=== PATIENT | female | born 1980 | race African-American/Black ===

== ENCOUNTER 2016-03-22 14:49 | Emergency (ER) | payer OTHER ==
[~2016-03-22] VITALS: Ht 149.9 cm; Wt 107.0 kg
[~2016-03-22 14:49] MED LIST: ALBUTEROL SULF8.5 GM INH; NEXAFED30 MG ORAL; PROMETHAZINE-C118 M1 ORAL
[2016-03-22] MEDS ORDERED: ADVAIR 100-501 EACH INH (15:20)
--- NOTE | 2016-03-22 15:59 | Emergency Room Report ---
History of Present Illness General Chief Complaint: Skin Rash/Abscess Source: Patient Present Illness HPI 35-year-old female presents to emergency department complaining of itchy rash similar to hives all over the upper extremity, torso and thighs x3 days. Patient states she just finished course of Tamiflu approximately 3 days ago when symptoms began. Patient denies swelling of the lips or tongue patient denies difficulty breathing. Patient states she has a history of asthma. Patient states she has taken 25mg Benadryl with no relief. Denies CP, Palpitations, LOC, AMS, dizziness, Changes in Vision, Sensation, paresthesias, or a sudden severe headache. Allergies: Coded Allergies: BANANA (Verified Adverse Reaction, Severe, 10/13/15) PENICILLINS (Verified Adverse Reaction, Severe, 10/13/15) Patient History Past Medical History: see triage record Past Surgical History: none Pertinent Family History: none Last Menstrual Period: 02/11/2017 Now: No Reviewed Nursing Documentation: PMH: Agreed, PSxH: Agreed Nursing Documentation-PMH Past Medical History: No History, Except For Hx Hypertension: Yes Hx Asthma: Yes Review of Systems All Other Systems: negative except mentioned in HPI Physical Exam Vital Signs Date Time Temp Pulse Resp B/P Pulse Ox O2 Delivery O2 Flow Rate FiO2 03/22/16 15:15 98.8 103 14 129/91 97 Room Air Sp02 EP Interpretation: reviewed, normal General Appearance: no apparent distress, alert, GCS 15, non-toxic Head: normocephalic, atraumatic Eyes: bilateral eye PERRL, bilateral eye normal inspection ENT: hearing grossly normal, normal pharynx, no angioedema, normal voice, TMs + canals normal, uvula midline, moist mucus membranes, other - no oral mucosal involvement, no swelling of the lips or tongue. Neck: full range of motion, supple/symm/no masses Respiratory: chest non-tender, lungs clear, normal breath sounds, no rhonchi, no respiratory distress, no retraction, no accessory muscle use, speaking full sentences, wheezing - scant expiratory wheezes heard in the upper airway, consistent with asthma. Cardiovascular #1: regular rate, rhythm, no edema Gastrointestinal: non tender, soft, no guarding, no rebound, other - urticarial type confluent lesions noted on the abdomen and upper chest. Rectal: deferred Musculoskeletal: back normal, gait/station normal, normal range of motion, non- tender, no calf tenderness Neurologic: alert, oriented x3, responsive, motor strength/tone normal, sensory intact, speech normal Psychiatric: judgement/insight normal, memory normal, mood/affect normal, no suicidal/homicidal ideation Skin: normal color, warm/dry, well hydrated, rash - blanching swollen, urticarial type lesions, with some confluence noted on the abdomen, back , anterior chest and UE's no evidence of infestation, blistering or targetoid lesions. no oral mucosal involvement. Lymphatic: no adenopathy Medical Decision Making PA Attestation Dr. Porter is my supervising Physician whom patient management has been discussed with. Diagnostic Impression: Primary Impression: Rash and other nonspecific skin eruption Additional Impression: History of asthma ER Course Pt. presents to the ED c/o rash on Torso, UE's and thighs x 5days s/p finishing Tamiflu. Ddx considered but are not limited to cellulitis, scabies, shingles, varicella, dermatitis, urticaria, eczema, tinea, viral exanthem, TEN/SJS Vital signs: are WNL, pt. is afebrile H&PE are most consistent with possible drug eruption no evidence to suggest TEN or SJS at this time no oral mucosal involvement, no involvement of the palms. ORDERS: none required at this time, the diagnosis is clinical ED INTERVENTIONS: -50mg Benadryl IM will d/c pt. with hydrocortisone and oral steroids. - pt. also requests refill of inhaler as she is almost out. DISCHARGE: At this time pt. is stable for d/c to home. Will provide printed patient care instructions, and any necessary prescriptions. Care plan and follow up instructions have been discussed with the patient prior to discharge. Last Vital Signs Date Time Temp Pulse Resp B/P Pulse Ox O2 Delivery O2 Flow Rate FiO2 03/22/16 15:15 98.8 103 14 129/91 97 Room Air Disposition: HOME, SELF-CARE Condition: Stable Scripts Hydrocortisone 2% Cream (ANTI-ITCH 2% CREAM) Y Cr 1 APPLIC TP TID, #56 GM 1 Refill Prov: Melva Lucas 03/22/16 Albuterol Sulfate* (ALBUTEROL SULFATE MDI*) 8.5 Gm Hfa.aer.ad 2 PUFF INH Q3H, #1 INH 0 Refills Prov: Melva Lucas 03/22/16 Prednisone* (PREDNISONE*) 20 Mg Tablet 40 MG ORAL DAILY for 5 Days, TAB Prov: Melva Lucas 03/22/16 Hydroxyzine Hcl (HYDROXYZINE HCL) 25 Mg Tablet 25 MG PO TID, #30 TAB Prov: Melva Lucas 03/22/16 Patient Instructions: Rash Additional Instructions: Take medications as directed. Follow up with PCP in 3-5 days Return sooner to ED if new symptoms occur, or current symptoms become worse. Do not drink alcohol, drive, or operate heavy machinery while taking Hydroxyzine as this may cause drowsiness. Melva Lucas Mar 22, 2016 15:59
[2016-03-22] MEDS ORDERED: DiphenhydrAMINE 50mg/ml Inj IM ONE (16:00)
[2016-03-22] MEDS ORDERED: PredniSONE 20mg tab ORAL ONE (16:00)
[2016-03-22] MEDS ORDERED: ALBUTEROL SULF8.5 GM INH (16:10)
[2016-03-22] MEDS ORDERED: ANTI-ITCH56 GM TP (16:10)
[2016-03-22] MEDS ORDERED: PREDNISONE20 MG ORAL (16:10)
[2016-03-22] MEDS ORDERED: HYDROXYZINE HCL25 M1 PO (16:10)
[2016-03-22 16:39] VITALS: BP 132/94
[2016-03-22 16:40] VITALS: BP 129/91
== END 2016-03-22 16:40 | disposition home or self-care (01) ==
LOC: EMR 16:29
DX: R21 Rash and other nonspecific skin eruption (principal); J45.909 Unspecified asthma, uncomplicated; I10 Essential (primary) hypertension; Z88.0 Allergy status to penicillin; Z91.018 Allergy to other foods
CPT/HCPCS: 96372; 99284; J1200

== ENCOUNTER 2016-04-11 11:07 | Emergency (ER) | payer OTHER ==
[~2016-04-11] VITALS: Ht 149.9 cm; Wt 108.0 kg
[~2016-04-11 11:07] MED LIST changes: +ADVAIR 100-501 EACH INH; +ANTI-ITCH56 GM TP; +HYDROXYZINE HCL25 M1 PO; +PREDNISONE20 MG ORAL
[2016-04-11] MEDS ORDERED: Ipratropium 0.02% Inh Soln 2.5ml UD ONE (11:45)
[2016-04-11] MEDS ORDERED: Albuterol ud Inhalation ONE (11:45)
[2016-04-11] MEDS ORDERED: Albuterol ud Inhalation HHN SCH (11:45)
[2016-04-11] MEDS ORDERED: Ipratropium 0.02% Inh Soln 2.5ml UD HHN SCH (11:45)
[2016-04-11] MEDS ORDERED: PredniSONE 20mg tab ORAL ONE (11:45)
[2016-04-11] MEDS ORDERED: ALBUTEROL2.5 MG/3 M HHN (11:47)
[2016-04-11] MEDS ORDERED: ALBUTEROL SULF8.5 GM INH (11:47)
[2016-04-11] MEDS ORDERED: PREDNISONE20 MG ORAL (11:47)
--- NOTE | 2016-04-11 11:50 | Emergency Room Report ---
History of Present Illness General Chief Complaint: Asthma Source: Patient Present Illness HPI 35 YOF with known asthma, non-smoker with cough and chest tightness since last night. Ran out of home nebulizers. Takes advair daily. Never intubated or on bipap. Denies fever/chills, SOB, chest pain, abd pain, other complaints. Allergies: Coded Allergies: BANANA (Verified Adverse Reaction, Severe, 10/13/15) PENICILLINS (Verified Adverse Reaction, Severe, 10/13/15) Patient History Past Medical History: asthma Past Surgical History: none Pertinent Family History: none Social History: Denies: alcohol use, drug use, smoking Last Menstrual Period: 03/29/16 Now: No Immunizations: UTD Reviewed Nursing Documentation: PMH: Agreed, PSxH: Agreed Nursing Documentation-PMH Hx Hypertension: Yes Hx Asthma: Yes Review of Systems All Other Systems: negative except mentioned in HPI Physical Exam Vital Signs Date Time Temp Pulse Resp B/P Pulse Ox O2 Delivery O2 Flow Rate FiO2 04/11/16 11:38 98.4 87 14 146/107 97 Room Air Sp02 EP Interpretation: reviewed, normal General Appearance: normal inspection, well appearing, no apparent distress, alert, GCS 15, non-toxic Head: normocephalic, atraumatic Eyes: bilateral eye EOMI, bilateral eye PERRL ENT: normal ENT inspection, hearing grossly normal, normal voice Neck: normal inspection, full range of motion, supple, no bony tend Respiratory: normal inspection, no respiratory distress, no retraction, no accessory muscle use, no wheezing, wheezing Cardiovascular #1: regular rate, rhythm, no edema Gastrointestinal: normal inspection, normal bowel sounds, non tender, soft, no guarding, no hernia Genitourinary: no CVA tenderness Musculoskeletal: normal inspection, back normal, normal range of motion, Markus' s Sign negative Neurologic: normal inspection, alert, oriented x3, responsive, cotton program technician III-XII nml as tested, speech normal Psychiatric: normal inspection, judgement/insight normal, mood/affect normal Skin: normal inspection, normal color, no rash Medical Decision Making Diagnostic Impression: Primary Impression: Asthma attack ER Course 35 YO F with mild asthma exac possibly from URI. VSS. Afebrile. Not hypoxic, tachpypnic or in severe distress Mild exp wheez on presentation Low suspicion for PNA given well appearance, afebrile, no rhonchi on exam Improved with duonebs, steroids Feels much better s/p tx Rx nebs refilled Rx Predisone for 3 days Fup with PMD Last Vital Signs Date Time Temp Pulse Resp B/P Pulse Ox O2 Delivery O2 Flow Rate FiO2 04/11/16 11:38 98.4 87 14 146/107 97 Room Air Status: improved Disposition: HOME, SELF-CARE Condition: Improved Scripts Prednisone* (PREDNISONE*) 20 Mg Tablet 20 MG ORAL BID for 3 Days, #6 TAB Prov: JACKY CRISTOBAL M.D. 04/11/16 Albuterol Sulfate* (ALBUTEROL SULFATE HHN*) 2.5 Mg/3 Ml Vial.neb 2.5 MG HHN Q4H Y for Shortness of Breath, #25 VIAL Prov: JACKY CRISTOBAL M.D. 04/11/16 Albuterol Sulfate* (ALBUTEROL SULFATE MDI*) 8.5 Gm Hfa.aer.ad 2 PUFF INH Q6H, #1 EA 0 Refills Prov: JACKY CRISTOBAL M.D. 04/11/16 Patient Instructions: Asthma, Adult Additional Instructions: - Take prednisone twice daily for next 3 days starting tomorrow/Sunday - Follow up with your doctor in 2-3 days JACKY CRISTOBAL M.D. Apr 11, 2016 11:50
[2016-04-11 11:56] VITALS: BP 132/78
[2016-04-11 12:19] VITALS: BP 132/78
== END 2016-04-11 12:20 | disposition home or self-care (01) ==
LOC: EMR 11:53
DX: J45.901 Unspecified asthma with (acute) exacerbation (principal); I10 Essential (primary) hypertension; Z88.0 Allergy status to penicillin; Z91.018 Allergy to other foods
CPT/HCPCS: 94640; 94664; 99284

== ENCOUNTER 2016-10-12 16:34 | Emergency (ER) | payer MEDICAID, OTHER ==
[~2016-10-12] VITALS: Ht 180.3 cm; Wt 102.5 kg
[~2016-10-12 16:34] MED LIST changes: +ALBUTEROL2.5 MG/3 M HHN
[2016-10-12] MEDS ORDERED: PredniSONE 20mg tab ORAL ONE (17:00)
[2016-10-12] MEDS ORDERED: PREDNISONE20 MG ORAL (17:09)
[2016-10-12] MEDS ORDERED: KENALOG 0.025%15 GM APPLIC (17:09)
[2016-10-12 17:13] VITALS: BP 122/78
--- NOTE | 2016-10-12 19:47 | Emergency Room Report ---
History of Present Illness General Chief Complaint: Skin Rash/Abscess Present Illness HPI The patient is a 36-year-old female presenting for rash. She states that she was taking an antibiotic for upper respiratory infection but does not remember the name. She finished a prescription for days prior which is when she began to develop the rash. She states that she does have an allergy to penicillin. She denies any pain but admits to itching and bumps on the skin of her left neck and mid chest. She has tried Benadryl at home which did not help. She denies any other symptoms including nausea, vomiting, fever, chills, cough, shortness of breath, chest pain Allergies: Coded Allergies: BANANA (Verified Adverse Reaction, Severe, 10/13/15) PENICILLINS (Verified Adverse Reaction, Severe, 10/13/15) Patient History Past Medical History: see triage record Pertinent Family History: none Reviewed Nursing Documentation: PMH: Agreed, PSxH: Agreed Nursing Documentation-PMH Hx Hypertension: Yes Hx Asthma: Yes Review of Systems All Other Systems: negative except mentioned in HPI Physical Exam Vital Signs Date Time Temp Pulse Resp B/P Pulse Ox O2 Delivery O2 Flow Rate FiO2 10/12/16 16:38 97.9 89 20 131/82 100 Room Air Sp02 EP Interpretation: reviewed, normal General Appearance: no apparent distress, alert, GCS 15, non-toxic Head: normocephalic, atraumatic Eyes: bilateral eye PERRL, bilateral eye normal inspection ENT: hearing grossly normal, normal pharynx, no angioedema, normal voice Neck: full range of motion, supple/symm/no masses Respiratory: chest non-tender, lungs clear, normal breath sounds, speaking full sentences Cardiovascular #1: regular rate, rhythm, no edema Musculoskeletal: back normal, gait/station normal, normal range of motion, non- tender Neurologic: alert, oriented x3, responsive, motor strength/tone normal, sensory intact, speech normal Psychiatric: judgement/insight normal, memory normal, mood/affect normal, no suicidal/homicidal ideation Skin: rash - papular rash to the L neck. Non tender. Lymphatic: no adenopathy Medical Decision Making PA Attestation Dr. Porter is my supervising physician. Patient management was discussed with my supervising physician Diagnostic Impression: Primary Impression: Dermatitis ER Course The patient is a 36-year-old female presenting for possible allergic reaction Ddx considered include but not limited to insect bite, contact dermatitis, eczema, cellulitis, anaphylaxis, among others PE: afebrile. NAD HEENT: No angioedema. Oropharynx patent. Skin: warm and dry. papular rash to L neck. Non tender. No scaling. The patient is given oral steroids and topical steroids. She will follow up with primary doctor. ER precautions given Last Vital Signs Date Time Temp Pulse Resp B/P Pulse Ox O2 Delivery O2 Flow Rate FiO2 10/12/16 17:13 78 17 122/78 97 Room Air 10/12/16 17:13 98.1 Status: improved Disposition: HOME, SELF-CARE Condition: Improved Scripts Prednisone* (PREDNISONE*) 20 Mg Tablet 40 MG ORAL DAILY, #10 TAB Prov: DELFIN CHÁVEZ 10/12/16 Triamcinolone Acet (Triamcinolone Acetonide) 15 Gm Cream..g. 15 GM APPLIC TID, #15 GM Prov: DELFIN CHÁVEZ 10/12/16 Referrals: NOT CHOSEN [facility]/,REFERRING (PCP) Patient Instructions: Rash Additional Instructions: I discussed my findings with the patient. All questions and concerns have been answered. Treatment and medication compliance have been addressed. I advised the patient that they need to follow up with PMD in 3-5 days. Return to ED if symptoms worsen, new symptoms arise, or if needed for any reason. Patient verbalized understanding of discharge instructions. DELFIN CHÁVEZ Oct 12, 2016 19:47
== END 2016-10-12 17:15 | disposition home or self-care (01) ==
LOC: EMR 17:03
DX: L30.9 Dermatitis, unspecified (principal); Z88.0 Allergy status to penicillin; I10 Essential (primary) hypertension; Z91.018 Allergy to other foods
CPT/HCPCS: 99283

== ENCOUNTER 2016-10-31 19:48 | Emergency (ER) | payer MEDICAID ==
[~2016-10-31] VITALS: Ht 152.4 cm; Wt 104.3 kg
[~2016-10-31 19:48] MED LIST changes: +KENALOG 0.025%15 GM APPLIC
[2016-10-31 20:02] VITALS: BP 134/84
[2016-10-31] MEDS ORDERED: ZITHROMAX250 MG ORAL (20:34)
[2016-10-31] MEDS ORDERED: PROMETHAZI6.25 MG/1 ORAL (20:34)
[2016-10-31] MEDS ORDERED: PREDNISONE20 MG ORAL (20:34)
[2016-10-31 20:37] VITALS: BP 134/84
--- NOTE | 2016-10-31 22:48 | Emergency Room Report ---
History of Present Illness General Chief Complaint: Upper Respiratory Illness Present Illness HPI The patient is a 36-year-old female with a history of asthma presenting for feeling of wheezing, sore throat, and cough which began 3 days prior. She denies any known sick contacts or recent travel. She has been using albuterol and Advair at home which usually helps but has not been helping. She denies other symptoms including fever, chills, nausea, vomiting Allergies: Coded Allergies: BANANA (Verified Adverse Reaction, Severe, 10/13/15) PENICILLINS (Verified Adverse Reaction, Severe, 10/13/15) Patient History Past Medical History: see triage record, asthma Pertinent Family History: none Reviewed Nursing Documentation: PMH: Agreed, PSxH: Agreed Nursing Documentation-PMH Hx Hypertension: Yes Hx Asthma: Yes Review of Systems All Other Systems: negative except mentioned in HPI Physical Exam Vital Signs Date Time Temp Pulse Resp B/P (MAP) Pulse Ox O2 Delivery O2 Flow Rate FiO2 10/31/16 19:54 98.1 99 20 134/84 98 Room Air Sp02 EP Interpretation: reviewed, normal General Appearance: no apparent distress, alert, GCS 15, non-toxic Head: normocephalic, atraumatic Eyes: bilateral eye normal inspection, bilateral eye PERRL ENT: hearing grossly normal, no angioedema, normal voice, uvula midline, tonsillar swelling, pharyngeal erythema, tonsillar exudate Neck: full range of motion, supple/symm/no masses Respiratory: chest non-tender, speaking full sentences, wheezing Cardiovascular #1: regular rate, rhythm, no edema Musculoskeletal: back normal, gait/station normal, normal range of motion, non- tender Neurologic: alert, oriented x3, responsive, motor strength/tone normal, sensory intact, speech normal Psychiatric: judgement/insight normal, memory normal, mood/affect normal, no suicidal/homicidal ideation Skin: normal color, no rash, warm/dry, well hydrated Medical Decision Making PA Attestation Dr. Marin is my supervising physician. Patient management was discussed with my supervising physician Diagnostic Impression: Primary Impression: Pharyngitis, acute Qualified Codes: J02.9 - Acute pharyngitis, unspecified Additional Impression: Asthma Qualified Codes: J45.901 - Unspecified asthma with (acute) exacerbation ER Course The patient is a 36-year-old female presenting for asthma and URI symptoms Differential diagnosis include but not limited to pharyngitis, sinusitis, AOM, bronchitis, PNA Physical exam: Vitals within normal limits. Afebrile. No apparent distress HEENT exam: There is bilateral tonsillar edema, erythema, and exudate. Uvula midline. Moist mucous membranes. There is bilateral cervical lymphadenopathy. Lungs have diffuse wheezing. No respiratory distress Skin is warm and dry. No rash The patient will be discharged home with a prescription for azithromycin, cough medication, prednisone and is given ER precautions. Patient will followup with primary care Last Vital Signs Date Time Temp Pulse Resp B/P (MAP) Pulse Ox O2 Delivery O2 Flow Rate FiO2 10/31/16 20:37 98.1 99 20 134/84 98 Room Air Status: improved Disposition: HOME, SELF-CARE Condition: Improved Scripts Promethazine Hcl (PROMETHAZINE HCL*) 6.25 Mg/5 Ml Syrup 5 ML ORAL Q6H, #120 ML 0 Refills Prov: DELFIN CHÁVEZ.A. 10/31/16 Prednisone* (PREDNISONE*) 20 Mg Tablet 40 MG ORAL DAILY, #10 TAB Prov: DELFIN CHÁVEZ P.A. 10/31/16 Azithromycin* (ZITHROMAX*) 250 Mg Tablet 250 MG ORAL DAILY, #6 TAB 0 Refills Take two tables once daily for 1 day, then one tablet once daily for 4 days. Prov: DELFIN CHÁVEZ P.A. 10/31/16 Referrals: NOT CHOSEN [facility],REFERRING (PCP) Patient Instructions: Upper Respiratory Infection, Adult Additional Instructions: I discussed my findings with the patient. All questions and concerns have been answered. Treatment and medication compliance have been addressed. I advised the patient that they need to follow up with PMD in 3-5 days. Return to ED if pain remains or worsens, cough worsens or remains, you notice blood in your sputum, you notice wheezing, you experience a fever, or if needed for any reason. Patient verbalized understanding of discharge instructions. DELFIN CHÁVEZ Oct 31, 2016 22:47
== END 2016-10-31 20:38 | disposition home or self-care (01) ==
LOC: EMR 20:26
DX: J45.901 Unspecified asthma with (acute) exacerbation (principal); J02.9 Acute pharyngitis, unspecified; I10 Essential (primary) hypertension; Z91.018 Allergy to other foods; Z88.0 Allergy status to penicillin
CPT/HCPCS: 99284

== ENCOUNTER 2017-03-20 09:45 | Emergency (ER) | payer MEDICAID ==
[~2017-03-20] VITALS: Ht 149.9 cm; Wt 110.2 kg
[~2017-03-20 09:45] MED LIST changes: +PROMETHAZI6.25 MG/1 ORAL; +ZITHROMAX250 MG ORAL
[2017-03-20] MEDS ORDERED: Albuterol ud Inhalation HHN ONE ×2 (10:30→11:30)
[2017-03-20] MEDS ORDERED: Ipratropium 0.02% Inh Soln 2.5ml UD HHN ONE (10:30)
--- NOTE | 2017-03-20 10:30 | Emergency Room Report ---
History of Present Illness General Chief Complaint: Dyspnea/Respdistress Source: Patient Present Illness HPI Patient presents with complaints of shortness of breath She has history of asthma and feels that the weather has made her flare up Denies any vomiting Denies any diarrhea Denies any chest pain denies any pleurisy Denies any recent travel Patient took a breathing treatment at home with minimal relief Last time she was on steroids was about 2 months ago Allergies: Coded Allergies: OSELTAMIVIR (Verified Allergy, Unknown, 03/20/17) BANANA (Verified Adverse Reaction, Severe, 10/13/15) PENICILLINS (Verified Adverse Reaction, Severe, 10/13/15) Uncoded Allergies: APPLE JUICE (Allergy, Unknown, 03/20/17) Patient History Past Medical History: see triage record Past Surgical History: none Pertinent Family History: none Last Menstrual Period: 02/18/17 Now: No Reviewed Nursing Documentation: PMH: Agreed, PSxH: Agreed Nursing Documentation-PMH Hx Hypertension: Yes Hx Asthma: Yes Review of Systems All Other Systems: negative except mentioned in HPI Physical Exam Vital Signs Date Time Temp Pulse Resp B/P (MAP) Pulse Ox O2 Delivery O2 Flow Rate FiO2 03/20/17 09:48 97.9 80 22 146/90 96 Room Air Sp02 EP Interpretation: reviewed, normal General Appearance: well appearing, no apparent distress Head: normocephalic, atraumatic Eyes: bilateral eye PERRL, bilateral eye EOMI ENT: hearing grossly normal, normal pharynx, TMs + canals normal, uvula midline Neck: full range of motion, supple, no meningismus, no bony tend Respiratory: no rhonchi, no respiratory distress, no retraction, no accessory muscle use, wheezing - Wheezing diffusely both upper and lower lobe Cardiovascular #1: normal peripheral pulses, regular rate, rhythm, no edema, no gallop, no JVD, no murmur Gastrointestinal: normal bowel sounds, non tender, soft, no mass, no organomegaly, non-distended, no guarding, no hernia, no pulsatile mass, no rebound Musculoskeletal: normal inspection Neurologic: oriented x3, responsive, purifying plant operator III-XII nml as tested, motor strength/ tone normal, sensory intact Psychiatric: mood/affect normal Skin: normal color, no rash, warm/dry, palpation normal Lymphatic: normal inspection, no adenopathy Medical Decision Making Diagnostic Impression: Primary Impression: Asthma Additional Impression: Asthma attack ER Course Patient is a fairly complex patient with multiple differential to consideration including but not limited to cardiac cardiopulmonary and vascular emergencies Patient's lung sounds and history of presenting in line with acute asthma exacerbation Patient has a significantly better with breathing treatments will be placed on steroids and follow up closely Last Vital Signs Date Time Temp Pulse Resp B/P (MAP) Pulse Ox O2 Delivery O2 Flow Rate FiO2 03/20/17 10:07 78 18 Room Air 03/20/17 09:48 97.9 146/90 96 Status: improved Disposition: HOME, SELF-CARE Condition: Improved Scripts Albuterol Sulfate (ALBUTEROL SULFATE) 5 Mg/1 Ml Solution 5 MG IH EVERY 6 HOURS, #30 AMP Prov: DELFINO TSE D.O. 03/20/17 Ipratropium [place] (ATROVENT HFA) 12.9 Gm Hfa.aer.ad 12.9 GM IH DAILY, #1 AMP Prov: DELFINO TSE D.O. 03/20/17 Prednisone* (PREDNISONE*) 20 Mg Tablet 20 MG ORAL BID, #10 TAB Prov: DELFINO TSE D.O. 03/20/17 Referrals: [facility],REFERR[facility] (PCP) Additional Instructions: Patient is provided with the discharge instructions notified to follow up with primary doctor in the next 2-3 days otherwise return to the er with any worsening symptoms. Please note that this report is being documented using [employer] technology. This can lead to erroneous entry secondary to incorrect interpretation by the dictating instrument. DELFINO TSE D.O. Mar 20, 2017 10:30
[2017-03-20] MEDS ORDERED: PREDNISONE20 MG ORAL (11:11)
[2017-03-20] MEDS ORDERED: ATROVENT HFA12.9 GM IH (11:11)
[2017-03-20] MEDS ORDERED: ALBUTEROL S5 MG/1 ML IH (11:11)
[2017-03-20 11:46] VITALS: BP 148/99
== END 2017-03-20 11:48 | disposition home or self-care (01) ==
LOC: EMR 10:21
DX: J45.901 Unspecified asthma with (acute) exacerbation (principal); I10 Essential (primary) hypertension; Z88.8 Allergy status to other drugs, medicaments and biological substances; Z88.0 Allergy status to penicillin; Z91.018 Allergy to other foods
CPT/HCPCS: 94640; 94664; 99284; J7512

== ENCOUNTER 2017-03-31 12:28 | Emergency (ER) | payer MEDICAID ==
[~2017-03-31] VITALS: Ht 149.9 cm; Wt 111.1 kg
[~2017-03-31 12:28] MED LIST changes: +ALBUTEROL S5 MG/1 ML IH; +ATROVENT HFA12.9 GM IH
[2017-03-31] MEDS ORDERED: Albuterol ud Inhalation HHN ONE (12:45)
[2017-03-31] MEDS ORDERED: Albuterol ud Inhalation HHN SCH (12:45)
[2017-03-31] MEDS ORDERED: Ipratropium 0.02% Inh Soln 2.5ml UD HHN ONE (12:45)
--- NOTE | 2017-03-31 12:49 | Emergency Room Report ---
History of Present Illness General Chief Complaint: Asthma Source: Patient Present Illness HPI Pt. presents to the emergency department complaining of asthma exacerbation x3 days. Patient reports that the cough with subjective fevers and chills times one week. Patient states she has been using albuterol inhaler daily as well as nebulized albuterol at nighttime. She reports only mild improvement of her symptoms. She reports 8/10 severity chest tightness and pain with coughing. Denies swelling of the lower extremities she denies history of cardiac problems. Patient is up to date with vaccinations except for yearly flu. Denies recent travel or ill contacts . Denies CP, Palpitations, LOC, AMS, dizziness, Changes in Vision, Sensation, paresthesias, or a sudden severe headache. Allergies: Coded Allergies: OSELTAMIVIR (Verified Allergy, Unknown, 03/20/17) BANANA (Verified Adverse Reaction, Severe, 10/13/15) PENICILLINS (Verified Adverse Reaction, Severe, 10/13/15) Uncoded Allergies: APPLE JUICE (Allergy, Unknown, 03/20/17) Patient History Past Medical History: see triage record Past Surgical History: none Pertinent Family History: none Last Menstrual Period: 02/18/17. Now: No Immunizations: UTD Reviewed Nursing Documentation: PMH: Agreed, PSxH: Agreed Nursing Documentation-PMH Hx Hypertension: Yes Hx Asthma: Yes Review of Systems All Other Systems: negative except mentioned in HPI Physical Exam Vital Signs Date Time Temp Pulse Resp B/P (MAP) Pulse Ox O2 Delivery O2 Flow Rate FiO2 03/31/17 12:32 98.2 100 24 150/81 91 Room Air Sp02 EP Interpretation: reviewed, normal General Appearance: no apparent distress, alert, GCS 15, non-toxic Head: normocephalic, atraumatic Eyes: bilateral eye normal inspection, bilateral eye PERRL ENT: hearing grossly normal, normal voice Neck: full range of motion Respiratory: chest non-tender, speaking full sentences, wheezing Cardiovascular #1: regular rate, rhythm, no edema, normal capillary refill Rectal: deferred Musculoskeletal: back normal, gait/station normal, normal range of motion, non- tender Neurologic: alert, oriented x3, responsive, motor strength/tone normal, sensory intact, speech normal, grossly normal Psychiatric: judgement/insight normal Skin: normal color, no rash, warm/dry, well hydrated Lymphatic: no adenopathy Medical Decision Making PA Attestation Dr. Moulton is my supervising Physician whom patient management has been discussed with. Diagnostic Impression: Primary Impression: Asthma exacerbation Qualified Codes: J45.901 - Unspecified asthma with (acute) exacerbation Additional Impression: Bronchitis ER Course Pt. presents to the emergency department complaining of asthma exacerbation x3 days. Patient reports that the cough with subjective fevers and chills times one week. Patient states she has been using albuterol inhaler daily as well as nebulized albuterol at nighttime. She reports only mild improvement of her symptoms. She reports 8/10 severity chest tightness and pain with coughing. Denies swelling of the lower extremities she denies history of cardiac problems. Patient is up to date with vaccinations except for yearly flu. Denies recent travel or ill contacts . Denies CP, Palpitations, LOC, AMS, dizziness, Changes in Vision, Sensation, paresthesias, or a sudden severe headache. Ddx considered but are not limited to asthma exacerbation, CHF, URI, pneumonia, PE, strep pharyngitis, meningitis. Vital signs: Pt. is afebrile, VS are WNL H&PE are most consistent with URI, asthma exacerbation ORDERS: -CXR : unremarkable ED INTERVENTIONS: Albuterol + Atrovent nebulized treatment. -Prednisone PO DISCHARGE: At this time pt. is stable for d/c to home. Will provide printed patient care instructions, and any necessary prescriptions. Care plan and follow up instructions have been discussed with the patient prior to discharge. Chest X-Ray Diagnostic Results Chest X-Ray Diagnostic Results : Chest X-Ray Ordered: Yes # of Views/Limited/Complete: 1 View Indication: Shortness of Breath EP Interpretation: Yes MAICOL Xray: Interpretation reviewed, by supervising MD, and agrees with findings. Interpretation: no consolidation, no effusion, no pneumothorax, no acute cardiopulmonary disease Impression: No acute disease Electronically Signed by: Melva Lucas PA-C Last Vital Signs Date Time Temp Pulse Resp B/P (MAP) Pulse Ox O2 Delivery O2 Flow Rate FiO2 03/31/17 12:35 100 24 Room Air 03/31/17 12:32 98.2 150/81 91 Disposition: HOME, SELF-CARE Condition: Stable Scripts Guaifenesin (Guaifenesin) 1,200 Mg Tab.er.12h 1200 MG PO BID, #20 TAB Prov: Melva Lucas 03/31/17 Prednisone* (PREDNISONE*) 20 Mg Tablet 40 MG ORAL DAILY for 5 Days, #10 TAB Prov: Melva Lucas 03/31/17 Albuterol Sulfate* (ALBUTEROL SULFATE HHN*) 2.5 Mg/3 Ml Vial.neb 3 ML INH Q4H Y for Shortness of Breath, #30 EA Prov: Melva Lucas 03/31/17 Codeine/Promethazine Hcl* (PROMETHAZINE-CODEINE SYRUP*) 118 Ml Syrup 5 ML ORAL Q6H Y for For Cough, #120 ML 0 Refills Prov: Melva Lucas 03/31/17 Patient Instructions: Asthma, Adult Additional Instructions: Take medications as directed. Follow up with a Primary Care Provider in 3-5 days, even if your symptoms have resolved. --Please review list of primary care clinics, if you do not already have a primary care provider Return sooner to ED if new symptoms occur, or current symptoms become worse. Do not drink alcohol, drive, or operate heavy machinery while taking Cough Syrup as this may cause drowsiness. - Please note that this Emergency Department Report was dictated using [employer] level lab technician technology software, occasionally this can lead to erroneous entry secondary to interpretation by the dictation equipment. Melva Lucas Mar 31, 2017 12:49
[2017-03-31] MEDS ORDERED: PROMETHAZINE-C118 M1 ORAL (13:24)
[2017-03-31] MEDS ORDERED: GUAIFENESIN1200 MG PO (13:24)
[2017-03-31] MEDS ORDERED: ALBUTEROL2.5 MG/3 M INH (13:24)
[2017-03-31] MEDS ORDERED: PREDNISONE20 MG ORAL (13:24)
[2017-03-31 13:44] VITALS: BP 145/76
--- NOTE | 2017-04-01 08:52 | Diagnostic Imaging Report ---
Indication: Chest pain Technique: One view of the chest Comparison: none Findings: Heart is borderline enlarged. The lungs and pleural spaces are clear Impression: Borderline cardiomegaly. No acute process
== END 2017-03-31 13:44 | disposition home or self-care (01) ==
LOC: EMR 12:45
DX: J45.901 Unspecified asthma with (acute) exacerbation (principal); I10 Essential (primary) hypertension; Z88.0 Allergy status to penicillin; Z88.8 Allergy status to other drugs, medicaments and biological substances; Z91.018 Allergy to other foods
CPT/HCPCS: 71045; 94640; 94664; 99284; J7512

== ENCOUNTER 2017-04-12 13:04 | Emergency (ER) | payer MEDICAID ==
[~2017-04-12] VITALS: Ht 149.9 cm; Wt 109.8 kg
[~2017-04-12 13:04] MED LIST changes: +ALBUTEROL2.5 MG/3 M INH; +GUAIFENESIN1200 MG PO
[2017-04-12] MEDS ORDERED: Albuterol ud Inhalation HHN SCH (13:30)
[2017-04-12] MEDS ORDERED: Albuterol ud Inhalation HHN ONE (14:00)
--- NOTE | 2017-04-12 14:35 | Diagnostic Imaging Report ---
Indication: Chest pain Comparison: 318 A single view chest radiograph was obtained. Findings: Cardiomediastinal appearance is within normal limits for age. Pulmonary vascularity is appropriate. The diaphragmatic contour is smooth and costophrenic angles are sharp. No pleural effusions are identified. The bones are unremarkable. Impression: No acute findings
[2017-04-12] MEDS ORDERED: Ipratropium 0.02% Inh Soln 2.5ml UD HHN ONE (15:00)
[2017-04-12 15:19] VITALS: BP 147/85
--- NOTE | 2017-04-12 15:30 | Emergency Room Report ---
History of Present Illness General Chief Complaint: Asthma Source: Patient Present Illness HPI 36-year-old female presents to the emergency department complaining of exacerbation of her asthma with wheezing, dry cough and minimal relief from her treatments at home. Patient states that for the past week she has been having increased exacerbation of her symptoms. Patient states that she uses albuterol nebulizer twice daily. Pt has been out of [facility] x 2 months. last PFT testing done 2 years ago. Pt. denies fevers or chills. pt. denies recent travel. Pt. reports 4/10 in severity pressure in the chest and describes "tightness" and coughing with attempts to take a full breath. Denies sore throat, ear pain, high fevers, lethargy, neck pain/stiffness, irritability, photophobia dehydration, N/V/D. Denies Cp, Palpitations, LOC, AMS, seizures, paresthesias, or changes in Hearing or vision, no Sudden severe RIBERA. Allergies: Coded Allergies: OSELTAMIVIR (Verified Allergy, Unknown, 03/20/17) BANANA (Verified Adverse Reaction, Severe, 10/13/15) PENICILLINS (Verified Adverse Reaction, Severe, 10/13/15) Uncoded Allergies: APPLE JUICE (Allergy, Unknown, 03/20/17) Patient History Past Medical History: see triage record, asthma Past Surgical History: none Pertinent Family History: none Last Menstrual Period: 02/18/2018 Now: No Reviewed Nursing Documentation: PMH: Agreed, PSxH: Agreed Nursing Documentation-PMH Past Medical History: No History, Except For Hx Hypertension: Yes Hx Asthma: Yes Review of Systems All Other Systems: negative except mentioned in HPI Physical Exam Vital Signs Date Time Temp Pulse Resp B/P (MAP) Pulse Ox O2 Delivery O2 Flow Rate FiO2 04/12/17 13:11 98.1 105 24 140/84 95 Room Air 98.1 04/12/17 13:26 95 Sp02 EP Interpretation: reviewed, normal General Appearance: no apparent distress, alert, GCS 15, non-toxic Head: normocephalic, atraumatic Eyes: bilateral eye normal inspection, bilateral eye PERRL ENT: hearing grossly normal, normal voice Neck: full range of motion Respiratory: chest non-tender, lungs clear, normal breath sounds, speaking full sentences, wheezing - moderate expiratory wheezes bilaterally, no ronchi Cardiovascular #1: regular rate, rhythm Musculoskeletal: back normal, gait/station normal, normal range of motion, non- tender Neurologic: alert, oriented x3, responsive, motor strength/tone normal, sensory intact, speech normal, grossly normal Psychiatric: judgement/insight normal Skin: normal color, no rash, warm/dry, well hydrated Lymphatic: no adenopathy Medical Decision Making PA Attestation Dr. Porter is my supervising Physician whom patient management has been discussed with. Diagnostic Impression: Primary Impression: Bronchitis with asthma, acute ER Course 36-year-old female presents to the emergency department complaining of exacerbation of her asthma with wheezing, dry cough and minimal relief from her treatments at home. Patient states that for the past week she has been having increased exacerbation of her symptoms. Patient states that she uses albuterol nebulizer twice daily. Pt has been out of [facility] x 2 months. last PFT testing done 2 years ago. Pt. denies fevers or chills. pt. denies recent travel. Pt. reports 4/10 in severity pressure in the chest and describes "tightness" and coughing with attempts to take a full breath. Denies sore throat, ear pain, high fevers, lethargy, neck pain/stiffness, irritability, photophobia dehydration, N/V/D. Denies Cp, Palpitations, LOC, AMS, seizures, paresthesias, or changes in Hearing or vision, no Sudden severe RIBERA. Ddx considered but are not limited to asthma exacerbation, CHF, URI, pneumonia, PE, strep pharyngitis, meningitis. Vital signs: Pt. is afebrile, VS are WNL H&PE are most consistent with URI, asthma exacerbation ORDERS: none required at this time, the diagnosis is clinical ED INTERVENTIONS: -Albuterol nebulized treatment x 3 - Atrovent x 1 -Prednisone PO - re-examination post nebulized treatment lung sounds have improved moderately some scant expiratory wheezes still present. d/w pt. conservative treatment, and to follow up with a primary care provider. pt given a list of primary care clinics for follow up. d/w pt. to return to the ED with worsening or new symptoms. DISCHARGE: At this time pt. is stable for d/c to home. Will provide printed patient care instructions, and any necessary prescriptions. Care plan and follow up instructions have been discussed with the patient prior to discharge. Chest X-Ray Diagnostic Results Chest X-Ray Diagnostic Results : Chest X-Ray Ordered: Yes # of Views/Limited/Complete: 1 View Indication: Shortness of Breath EP Interpretation: Yes PA Xray: Interpretation reviewed, by supervising MD, and agrees with findings. Interpretation: no consolidation, no effusion, no pneumothorax Impression: No acute disease Electronically Signed by: Melva Lucas PA-C Last Vital Signs Date Time Temp Pulse Resp B/P (MAP) Pulse Ox O2 Delivery O2 Flow Rate FiO2 04/12/17 15:22 90 20 93 Room Air 21 04/12/17 15:19 98.0 147/85 98.0 Disposition: HOME, SELF-CARE Condition: Stable Scripts Guaifenesin (Guaifenesin) 1,200 Mg Tab.er.12h 1200 MG PO BID, #20 TAB Prov: Melva Lucas P.A. 04/12/17 Albuterol Sulfate* (ALBUTEROL SULFATE HHN*) 2.5 Mg/3 Ml Vial.neb 3 ML INH Q4H Y for Shortness of Breath, #30 EA Prov: Melva Lucas.A. 04/12/17 Fluticasone/Salmeterol (Advair 250-50 Diskus) 1 Each Blst.w.dev 1 PUFF INH EVERY 12 HOURS, #1 EA 3 Refills Prov: Melva Lucas.A. 04/12/17 Prednisone* (PREDNISONE*) 20 Mg Tablet 40 MG ORAL DAILY for 5 Days, #10 TAB Prov: Melva Lucas.A. 04/12/17 Codeine/Promethazine Hcl* (PROMETHAZINE-CODEINE SYRUP*) 118 Ml Syrup 5 ML ORAL Q6H Y for For Cough, #120 ML 0 Refills Prov: Melva Lucas.A. 04/12/17 Referrals: [facility]ERR[facility] (PCP) Patient Instructions: Asthma, Adult Additional Instructions: Take medications as directed. Follow up with a Primary Care Provider in 3-5 days, even if your symptoms have resolved. --Please review list of primary care clinics, if you do not already have a primary care provider Return sooner to ED if new symptoms occur, or current symptoms become worse. Do not drink alcohol, drive, or operate heavy machinery while taking Cough Syrup as this may cause drowsiness. - Please note that this Emergency Department Report was dictated using [email or web address] driver technology software, occasionally this can lead to erroneous entry secondary to interpretation by the dictation equipment. Melva Lucas Apr 12, 2017 15:30
[2017-04-12] MEDS ORDERED: GUAIFENESIN1200 MG PO (15:36)
[2017-04-12] MEDS ORDERED: ADVAIR 250-501 EACH INH (15:36)
[2017-04-12] MEDS ORDERED: PREDNISONE20 MG ORAL (15:36)
[2017-04-12] MEDS ORDERED: ALBUTEROL2.5 MG/3 M INH (15:36)
[2017-04-12] MEDS ORDERED: PROMETHAZINE-C118 M1 ORAL (15:36)
[2017-04-12 15:46] VITALS: BP 143/84
== END 2017-04-12 15:49 | disposition home or self-care (01) ==
LOC: EMR 13:40
DX: J20.9 Acute bronchitis, unspecified (principal); J45.901 Unspecified asthma with (acute) exacerbation; I10 Essential (primary) hypertension; Z88.0 Allergy status to penicillin; Z91.018 Allergy to other foods
CPT/HCPCS: 71045; 94640; 94664; 99284; J7512

== ENCOUNTER 2017-04-22 16:11 | Emergency (ER) | payer MEDICAID ==
[~2017-04-22] VITALS: Ht 149.9 cm; Wt 111.1 kg
[~2017-04-22 16:11] MED LIST changes: +ADVAIR 250-501 EACH INH
[2017-04-22] MEDS ORDERED: Albuterol ud Inhalation HHN ONE (16:30)
[2017-04-22] MEDS ORDERED: Ipratropium 0.02% Inh Soln 2.5ml UD HHN ONE (16:30)
[2017-04-22] MEDS: Ipratropium 0.02% Inh Soln 2.5ml UD HHN SCH ×3 (16:41→16:55)
[2017-04-22] MEDS: Albuterol ud Inhalation HHN SCH ×3 (16:41→16:55)
[2017-04-22] MEDS ORDERED: PREDNISONE20 M1 PO (18:16)
[2017-04-22 18:25] VITALS: BP 130/72
--- NOTE | 2017-04-22 20:14 | Emergency Room Report ---
History of Present Illness General Chief Complaint: Asthma Source: Patient Present Illness HPI The patient is a 36-year-old female with a history of asthma presenting for possible asthma exacerbation. She uses albuterol and Advair at home. She states that symptoms have worsened due to to the cold weather. She is experiencing coughing as well as shortness of breath. She denies any pain. She denies other symptoms including N, V, F, chills, dizziness, blurred vision Allergies: Coded Allergies: OSELTAMIVIR (Verified Allergy, Unknown, 03/20/17) BANANA (Verified Adverse Reaction, Severe, 10/13/15) PENICILLINS (Verified Adverse Reaction, Severe, 10/13/15) Uncoded Allergies: APPLE JUICE (Allergy, Unknown, 03/20/17) Patient History Past Medical History: see triage record Pertinent Family History: none Reviewed Nursing Documentation: PMH: Agreed, PSxH: Agreed Nursing Documentation-PMH Hx Hypertension: Yes Hx Asthma: Yes Review of Systems All Other Systems: negative except mentioned in HPI Physical Exam Vital Signs Date Time Temp Pulse Resp B/P (MAP) Pulse Ox O2 Delivery O2 Flow Rate FiO2 04/22/17 16:18 98.1 104 22 132/80 100 Room Air 98.1 04/22/17 16:38 21 Sp02 EP Interpretation: reviewed, normal General Appearance: no apparent distress, alert, GCS 15, non-toxic Head: normocephalic, atraumatic Eyes: bilateral eye normal inspection, bilateral eye PERRL ENT: hearing grossly normal, normal pharynx, no angioedema, normal voice Neck: full range of motion, supple/symm/no masses Respiratory: no accessory muscle use, speaking full sentences, wheezing Cardiovascular #1: regular rate, rhythm, no edema Musculoskeletal: back normal, gait/station normal, normal range of motion, non- tender Neurologic: alert, oriented x3, responsive, motor strength/tone normal, sensory intact, speech normal Psychiatric: judgement/insight normal, memory normal, mood/affect normal, no suicidal/homicidal ideation Skin: normal color, no rash, warm/dry, well hydrated Medical Decision Making PA Attestation Dr. Nuñez is my supervising physician. Patient management was discussed with my supervising physician Diagnostic Impression: Primary Impression: Asthma exacerbation Qualified Codes: J45.901 - Unspecified asthma with (acute) exacerbation ER Course The patient is a 36-year-old female with a history of asthma presenting for possible asthma exacerbation Differential diagnoses considered but not limited to: Asthma exacerbation, bronchitis, pneumonia, anxiety Physical exam: Vitals within normal limits. No apparent distress HEENT exam is unremarkable Lungs: Decreased breath sounds bilaterally with wheezing. Chest is nontender. No respiratory distress. No accessory muscle use. The patient was given a breathing treatment x3 and is feeling much better. Lungs sounds have improved Patient is discharged home with a prescription for prednisone and will continue using albuterol and advair and will followup with PMD. Pt was told to use humidifier at home. ER precautions are given Last Vital Signs Date Time Temp Pulse Resp B/P (MAP) Pulse Ox O2 Delivery O2 Flow Rate FiO2 04/22/17 18:25 97.9 98 18 130/72 98 Room Air 97.9 04/22/17 16:59 21 Status: improved Disposition: HOME, SELF-CARE Condition: Improved Scripts Prednisone (Prednisone) 20 Mg Tablet 40 MG PO DAILY, #8 TAB Prov: DELFIN CHÁVEZ 04/22/17 Patient Instructions: Asthma, Adult, Asthma Attack Prevention Additional Instructions: I discussed my findings with the patient. All questions and concerns have been answered. Treatment and medication compliance have been addressed. I advised the patient that they need to follow up with PMD in 3-5 days. Return to ED if symptoms worsen, new symptoms arise, or if needed for any reason. Patient verbalized understanding of discharge instructions. DELFIN CHÁVEZ Apr 22, 2017 20:14
== END 2017-04-22 18:25 | disposition home or self-care (01) ==
LOC: EMR 16:30
DX: J45.901 Unspecified asthma with (acute) exacerbation (principal); I10 Essential (primary) hypertension; Z88.0 Allergy status to penicillin; Z91.018 Allergy to other foods
CPT/HCPCS: 94640; 94664; 99283

== ENCOUNTER 2017-05-16 14:47 | Emergency (ER) | payer MEDICAID ==
[~2017-05-16] VITALS: Ht 149.9 cm; Wt 110.7 kg
[~2017-05-16 14:47] MED LIST changes: +PREDNISONE20 M1 PO
--- NOTE | 2017-05-16 15:12 | Emergency Room Report ---
History of Present Illness General Chief Complaint: To Be Triaged Source: Patient Present Illness HPI 36-year-old female presents with feeling like she's having asthma attack denies chest pain, shortness of breath Denies fever chills Endorses recent URI symptoms, chest tightness Has been here multiple times per month last 2 months Review of EMR does not show that she is on long-acting steroid Allergies: Coded Allergies: OSELTAMIVIR (Verified Allergy, Unknown, 03/20/17) BANANA (Verified Adverse Reaction, Severe, 10/13/15) PENICILLINS (Verified Adverse Reaction, Severe, 10/13/15) Uncoded Allergies: APPLE JUICE (Allergy, Unknown, 03/20/17) Patient History Past Medical History: asthma Past Surgical History: none Pertinent Family History: none Social History: Denies: smoking, alcohol use, drug use Now: No Immunizations: UTD Reviewed Nursing Documentation: PMH: Agreed, PSxH: Agreed Nursing Documentation-PMH Hx Hypertension: Yes Hx Asthma: Yes Review of Systems All Other Systems: negative except mentioned in HPI Physical Exam Sp02 EP Interpretation: reviewed, normal General Appearance: normal inspection, well appearing, no apparent distress, alert, GCS 15, non-toxic Head: normocephalic, atraumatic Eyes: bilateral eye PERRL, bilateral eye EOMI ENT: normal ENT inspection, hearing grossly normal, normal pharynx, no angioedema, normal voice, TMs + canals normal, uvula midline, moist mucus membranes Neck: normal inspection, full range of motion, supple, thyroid normal, no meningismus, no bony tend Respiratory: normal inspection, lungs clear, normal breath sounds, no rhonchi, no respiratory distress, no retraction, no accessory muscle use, speaking full sentences, wheezing Cardiovascular #1: regular rate, rhythm, no edema, no JVD, normal capillary refill Gastrointestinal: normal inspection, normal bowel sounds, non tender, soft, no mass, no peritonitis, non-distended, no guarding, no hernia, no pulsatile mass Genitourinary: no CVA tenderness Musculoskeletal: normal inspection, back normal, normal range of motion, no calf tenderness, pelvis stable, Markus's Sign negative Neurologic: normal inspection, alert, oriented x3, responsive, almond roaster III-XII nml as tested, motor strength/tone normal, cerebellar normal, normal gait, speech normal Psychiatric: normal inspection, judgement/insight normal, mood/affect normal, no suicidal/homicidal ideation, no delusions Skin: normal inspection, normal color, no rash Lymphatic: normal inspection, no adenopathy Medical Decision Making Diagnostic Impression: Primary Impression: Asthma attack ER Course 36-year-old female with mild asthma exacerbation Vital signs stable, afebrile No tachycardia, tachypnea or hypoxia imProved with albuterol, prednisone Will start patient on long-acting steroid, Advair, given obvious poor primary care follow-up and multiple visits with exacerbations occurring 2-3 times per month ER course: Patient has remained stable during ED stay. Disposition: Patient is to be discharged to home. Prescriptions given are advair, ventolin, prednisone Patient is instructed to follow up with their primary care doctor within 5 days. Strict return precautions discussed with patient such as fever, chills, worsening/severe pain, nausea, vomiting, which may indicate severe illness. Patient verbalizes understanding and agrees with plan. Please note that this Emergency Department Report was dictated using [employer] index technology software, occasionally this can lead to erroneous entry secondary to interpretation by the dictation equipment Status: improved Disposition: HOME, SELF-CARE Scripts Prednisone* (PREDNISONE*) 20 Mg Tablet 40 MG ORAL DAILY for 5 Days, #10 TAB Prov: JACKY CRISTOBAL M.D. 05/16/17 Albuterol Sulfate (VENTOLIN HFA) 18 Gm Hfa.aer.ad 1 PUFF INH EVERY 6 HOURS, #18 GM 0 Refills Prov: JACKY CRISTOBAL M.D. 05/16/17 Fluticasone/Salmeterol (Advair 100-50 Diskus) 1 Each Blst.w.dev 1 PUFF INH TWICE A DAY for 30 Days, #1 EA 1 Refill Prov: JACKY CRISTOBAL M.D. 05/16/17 JACKY CRISTOBAL M.D. May 16, 2017 15:12
[2017-05-16] MEDS ORDERED: PREDNISONE20 MG ORAL (15:13)
[2017-05-16] MEDS ORDERED: ADVAIR 100-501 EACH INH (15:13)
[2017-05-16] MEDS ORDERED: VENTOLIN HFA18 GM INH (15:13)
[2017-05-16] MEDS ORDERED: Albuterol ud Inhalation HHN ONE (15:15)
[2017-05-16 15:58] VITALS: BP 138/93
[2017-05-16 18:56] VITALS: BP 138/93
== END 2017-05-16 16:20 | disposition home or self-care (01) ==
LOC: EMR 16:00
DX: J45.901 Unspecified asthma with (acute) exacerbation (principal); I10 Essential (primary) hypertension
CPT/HCPCS: 94640; 94664; 99284; J7512

== ENCOUNTER 2017-07-17 01:00 | Emergency (ER) | payer MEDICAID ==
[~2017-07-17] VITALS: Ht 149.9 cm; Wt 109.8 kg
[~2017-07-17 01:00] MED LIST changes: +VENTOLIN HFA18 GM INH
--- NOTE | 2017-07-17 01:48 | Emergency Room Report ---
History of Present Illness General Chief Complaint: Earache Source: Patient Present Illness HPI This is a 36-year-old female with no significant past medical history. She presents with chief complaint of foreign body in her ear. She is clean area with a Q-tip when the tip broke off. She try to get it out with another Q-tip and pushing it further. No pain. No bleeding. No other complaint. Onset about a couple hours ago. Allergies: Coded Allergies: OSELTAMIVIR (Verified Allergy, Unknown, 03/20/17) BANANA (Verified Adverse Reaction, Severe, 10/13/15) PENICILLINS (Verified Adverse Reaction, Severe, 10/13/15) Uncoded Allergies: APPLE JUICE (Allergy, Unknown, 03/20/17) Patient History Past Medical History: see triage record, old chart reviewed Past Surgical History: other Pertinent Family History: none Social History: Denies: smoking Last Menstrual Period: June Now: No Immunizations: other Reviewed Nursing Documentation: PMH: Agreed; PSxH: Agreed Nursing Documentation-PMH Hx Hypertension: Yes Hx Asthma: Yes Review of Systems Eye: Denies: eye pain, blurred vision ENT: Denies: ear pain, nose congestion, throat swelling Respiratory: Denies: cough, shortness of breath Cardiovascular: Denies: chest pain, palpitations Gastrointestinal: Denies: abdominal pain, diarrhea, nausea, vomiting Musculoskeletal: Denies: back pain, joint pain Skin: Denies: rash Neurological: Denies: headache, numbness Endocrine: Denies: increased thirst, increased urine Hematologic/Lymphatic: Denies: easy bruising All Other Systems: negative except mentioned in HPI Physical Exam Vital Signs Date Time Temp Pulse Resp B/P (MAP) Pulse Ox O2 Delivery O2 Flow Rate FiO2 07/17/17 01:11 98.1 82 16 147/90 95 Room Air 98.1 vitals normal Sp02 EP Interpretation: reviewed, normal General Appearance: well appearing, no apparent distress, alert, obese Head: normocephalic, atraumatic Eyes: bilateral eye PERRL, bilateral eye EOMI ENT: hearing grossly normal, normal pharynx, other - right ear canal with foreign body in the form of a Q-tip No perforation. Neck: full range of motion, supple, no meningismus Respiratory: chest non-tender, lungs clear, normal breath sounds Cardiovascular #1: regular rate, rhythm, no murmur Gastrointestinal: normal bowel sounds, non tender, no mass, no organomegaly, no bruit, non-distended Musculoskeletal: back normal, gait/station normal, normal range of motion Psychiatric: mood/affect normal Skin: warm/dry Procedures Additional Procedure Procedure Narrative Procedure: Foreign body removal Indication: Foreign body Description: I irrigated the ear canal with warm water. The Q-tip removed without any problem. On recheck no perforation. No trauma. No complication. Patient tolerated procedure without problem. Medical Decision Making Diagnostic Impression: Primary Impression: Foreign body of ear, right Qualified Codes: T16.1XXA - Foreign body in right ear, initial encounter ER Course this patient presents with foreign body to left ear. No trauma. No perforation. Remove easily. Last Vital Signs Date Time Temp Pulse Resp B/P (MAP) Pulse Ox O2 Delivery O2 Flow Rate FiO2 07/17/17 01:11 98.1 82 16 147/90 95 Room Air 98.1 Status: improved Disposition: HOME, SELF-CARE Condition: Stable Referrals: [facility] (PCP) Additional Instructions: Follow-up with your doctor as needed in 7 days. Return if worse. MARYCHUY MULLINS M.D. July 17, 2017 01:48
[2017-07-17 01:51] VITALS: BP 147/90
== END 2017-07-17 01:54 | disposition home or self-care (01) ==
LOC: EMR 01:27
DX: T16.1XXA Foreign body in right ear, initial encounter (principal); X58.XXXA Exposure to other specified factors, initial encounter; Y92.9 Unspecified place or not applicable; I10 Essential (primary) hypertension; J45.909 Unspecified asthma, uncomplicated; Z88.0 Allergy status to penicillin; Z91.018 Allergy to other foods
CPT/HCPCS: 69200; 99284; Z7502

== ENCOUNTER 2017-11-06 13:37 | Emergency (ER) | payer MEDICAID ==
[~2017-11-06] VITALS: Ht 149.9 cm; Wt 111.1 kg
[2017-11-06 13:53] VITALS: BP 140/96
--- NOTE | 2017-11-06 14:47 | Emergency Room Report ---
History of Present Illness General Chief Complaint: Upper Respiratory Illness Source: Patient Present Illness HPI 37 YO female present to the ED c/o sinus congestion , with non-purulent rhinorrhea. Pt. also reports she began coughing today and hx of bronchitis. pt. denies RIBERA, dizziness or symptoms greater than 10 days. pt. denies fevers or chills. Denies unilateral symptoms. Denies sore throat, ear pain, high fevers, lethargy, neck pain/stiffness, irritability, photophobia dehydration, N/V/D. Denies Cp, Palpitations, LOC, AMS, seizures, paresthesias, or changes in Hearing or vision. Denies hx of smoking, asthma or COPD. Allergies: Coded Allergies: OSELTAMIVIR (Verified Allergy, Unknown, 03/20/17) BANANA (Verified Adverse Reaction, Severe, 10/13/15) PENICILLINS (Verified Adverse Reaction, Severe, 10/13/15) Uncoded Allergies: APPLE JUICE (Allergy, Unknown, 03/20/17) Patient History Past Medical History: see triage record Past Surgical History: none Pertinent Family History: none Last Menstrual Period: 10/15 Now: No Reviewed Nursing Documentation: PMH: Agreed; PSxH: Agreed Nursing Documentation-PMH Hx Hypertension: Yes Hx Asthma: Yes Review of Systems All Other Systems: negative except mentioned in HPI Physical Exam Vital Signs Date Time Temp Pulse Resp B/P (MAP) Pulse Ox O2 Delivery O2 Flow Rate FiO2 11/06/17 13:48 98.0 77 16 140/96 98 Room Air 98.1 Sp02 EP Interpretation: reviewed, normal General Appearance: no apparent distress, alert, GCS 15, non-toxic Head: normocephalic, atraumatic Eyes: bilateral eye normal inspection, bilateral eye PERRL ENT: hearing grossly normal, normal pharynx, normal voice, TMs + canals normal , uvula midline, moist mucus membranes, nasal congestion - turbinates boggy and swollen bilaterally, clear rhinorrhea noted. Neck: full range of motion Respiratory: chest non-tender, lungs clear, normal breath sounds, no respiratory distress, no wheezing, speaking full sentences Cardiovascular #1: regular rate, rhythm Musculoskeletal: back normal, gait/station normal, normal range of motion, non- tender Neurologic: alert, oriented x3, responsive, motor strength/tone normal, sensory intact, speech normal, grossly normal Psychiatric: judgement/insight normal Skin: normal color, no rash, warm/dry, well hydrated Lymphatic: no adenopathy Medical Decision Making PA Attestation Dr. Galicia is my supervising physician whom pt. management has been discussed with. Diagnostic Impression: Primary Impression: Nasal sinus congestion Additional Impression: Rhinitis Qualified Codes: J30.9 - Allergic rhinitis, unspecified ER Course 37 YO female present to the ED c/o sinus congestion , with non-purulent rhinorrhea. Pt. also reports she began coughing today and hx of bronchitis. pt. denies RIBERA, dizziness or symptoms greater than 10 days. pt. denies fevers or chills. Denies unilateral symptoms. Denies sore throat, ear pain, high fevers, lethargy, neck pain/stiffness, irritability, photophobia dehydration, N/V/D. Denies Cp, Palpitations, LOC, AMS, seizures, paresthesias, or changes in Hearing or vision. Denies hx of smoking, asthma or COPD. Ddx considered but are not limited to URI, Sinusitis, rhinitis, bronchitis, PE, strep pharyngitis, meningitis. Vital signs: Pt. is afebrile, the remaining VS are WNL H&PE are most consistent with Rhinitis and nasal sinus congestion, no evidence of bacterial sinusitis, no meningeal signs, oropharynx is not involved, no evidence of bacterial infection at this time. ORDERS: none required at this time, the diagnosis is clinical ED INTERVENTIONS: None required at this time. --PT. EDUCATION: Discussed antibiotic resistance with inappropriate prescribing of antibiotics for viral illnesses. Discussed signs and symptoms to indicate viral illness versus bacterial illness. DISCHARGE: At this time pt. is stable for d/c to home. Will provide printed patient care instructions, and any necessary prescriptions. Care plan and follow up instructions have been discussed with the patient prior to discharge. Last Vital Signs Date Time Temp Pulse Resp B/P (MAP) Pulse Ox O2 Delivery O2 Flow Rate FiO2 11/06/17 13:53 98.1 77 16 140/96 98 Room Air 98.1 Disposition: HOME, SELF-CARE Condition: Stable Scripts Pseudoephedrine Hcl* (NEXAFED*) 30 Mg Tablet 30 MG ORAL Q6H PRN for congestion, #20 TAB Prov: Melva Lucas 11/06/17 Oxymetazoline HCl (Afrin) 15 Ml [place] 2 SPRAY NASAL TWICE A DAY, #15 ML Prov: Melva Lucas 11/06/17 Cetirizine Hcl* (ZYRTEC*) 10 Mg Tablet 10 MG ORAL DAILY, #30 TAB 0 Refills Prov: Melva Lucas 11/06/17 Referrals: [facility] (PCP) Departure Forms: Return to Work Return to Work Date: Nov 08, 2017 Work Restrictions: None Return to Full Activity: Nov 08, 2017 Patient Instructions: Allergic Rhinitis Additional Instructions: Take medications as directed. Do not use afrin for more than 3 days Follow up with a Primary Care Provider in 3-5 days, even if your symptoms have resolved. --Please review list of primary care clinics, if you do not already have a primary care provider Return sooner to ED if new symptoms occur, or current symptoms become worse. - Please note that this Emergency Department Report was dictated using [employer] aided drafter technology software, occasionally this can lead to erroneous entry secondary to interpretation by the dictation equipment. Melva Lucas Nov 06, 2017 14:47
[2017-11-06] MEDS ORDERED: AFRIN NASAL SPR30 ML NASAL (14:48)
[2017-11-06] MEDS ORDERED: ZYRTEC10 MG ORAL (14:48)
[2017-11-06] MEDS ORDERED: NEXAFED30 MG ORAL (14:48)
[2017-11-06 14:51] VITALS: BP 140/96
== END 2017-11-06 14:53 | disposition home or self-care (01) ==
LOC: EMR 14:33
DX: J31.0 Chronic rhinitis (principal); R09.81 Nasal congestion; I10 Essential (primary) hypertension; J45.909 Unspecified asthma, uncomplicated; Z88.0 Allergy status to penicillin; Z91.018 Allergy to other foods
CPT/HCPCS: 99283

== ENCOUNTER 2018-01-03 18:49 | Emergency (ER) | payer MEDICAID ==
[~2018-01-03] VITALS: Ht 149.9 cm; Wt 107.0 kg
[~2018-01-03 18:49] MED LIST changes: +AFRIN NASAL SPR30 ML NASAL; +ZYRTEC10 MG ORAL
[2018-01-03 18:54] VITALS: BP 125/84
[2018-01-03] MEDS ORDERED: Metoclopramide 10mg/10ml Liq ORAL ONE (19:15)
[2018-01-03] MEDS ORDERED: Albuterol ud Inhalation HHN ONE (19:15)
[2018-01-03] MEDS ORDERED: Ketorolac 30mg Inj IM ONE (19:15)
[2018-01-03] MEDS ORDERED: Excedrin Migraine tab ORAL ONE (19:15)
[2018-01-03] MEDS ORDERED: REGLAN10 MG ORAL (20:04)
[2018-01-03] MEDS ORDERED: EXCEDRIN MIGRA1 EACH PO (20:04)
[2018-01-03] MEDS ORDERED: ALBUTEROL SULF8.5 GM INH (20:04)
[2018-01-03] MEDS ORDERED: PREDNISONE20 MG ORAL (20:04)
[2018-01-03 20:10] VITALS: BP 122/76
[2018-01-03 20:24] LABS: APPEARANCE,URINE CLEAR; BILIRUBIN, URINE NEGATIVE (NEGATIVE); COLOR,URINE PALE YELLOW; GLUCOSE, URINE (UA) NEGATIVE (NEGATIVE); KETONES,URINE NEGATIVE (NEGATIVE); LEUKOCYTE ESTERASE ,URINE NEGATIVE (NEGATIVE); NITRITE,URINE NEGATIVE (NEGATIVE); PH,URINE 7 (4.5-8.0); PROTEIN,URINE NEGATIVE (NEGATIVE); UROBILINOGEN,URINE NORMAL MG/DL (0.0-1.0)
--- NOTE | 2018-01-03 20:28 | Emergency Room Report ---
History of Present Illness General Chief Complaint: Headache Source: Patient Present Illness HPI Pt w/ hx of asthma and migraines. pt. was out of her advair inhaler x 3 weeks, just got refill today. persistent wheezing and coughing x 3 days. pt. denies fevers or chills. pt. reports frontal pulsatile 8/10 in severity RIBERA and photophobia. Denies N/V, neck pain or stiffness. pt .reports hx of migraines in the past but hasnt had one in a few years. pt. denies recent illness. She reports urinary frequency, denies hematuria or dysuria. pt. denies head trauma. Denies CP, Palpitations, LOC, AMS, dizziness, Changes in Vision, Sensation, paresthesias, or a sudden severe headache. Allergies: Coded Allergies: OSELTAMIVIR (Verified Allergy, Unknown, 03/20/17) BANANA (Verified Adverse Reaction, Severe, 10/13/15) PENICILLINS (Verified Adverse Reaction, Severe, 10/13/15) Uncoded Allergies: APPLE JUICE (Allergy, Unknown, 03/20/17) Patient History Past Medical History: see triage record, asthma Past Surgical History: none Pertinent Family History: none Now: No Immunizations: UTD Reviewed Nursing Documentation: PMH: Agreed; PSxH: Agreed Nursing Documentation-PMH Past Medical History: No History, Except For Hx Hypertension: Yes Hx Asthma: Yes Review of Systems All Other Systems: negative except mentioned in HPI Physical Exam Vital Signs Date Time Temp Pulse Resp B/P (MAP) Pulse Ox O2 Delivery O2 Flow Rate FiO2 01/03/18 18:54 98.1 86 17 125/84 100 Room Air 01/03/18 19:37 21 Sp02 EP Interpretation: reviewed, normal General Appearance: no apparent distress, alert, GCS 15, non-toxic Head: normocephalic, atraumatic Eyes: bilateral eye normal inspection, bilateral eye PERRL, bilateral eye photophobia - photophobia ENT: hearing grossly normal, normal voice Neck: full range of motion, no meningismus Respiratory: chest non-tender, lungs clear, speaking full sentences, wheezing - Expiratory Cardiovascular #1: regular rate, rhythm Musculoskeletal: back normal, gait/station normal, normal range of motion Neurologic: alert, oriented x3, responsive, motor strength/tone normal, sensory intact, normal gait, speech normal, other - no facial droop, grossly normal Psychiatric: judgement/insight normal Skin: normal color, no rash, warm/dry, well hydrated Lymphatic: no adenopathy Medical Decision Making PA Attestation Dr. Caldwell is my supervising Physician whom patient management has been discussed with. Diagnostic Impression: Primary Impression: Asthma exacerbation Qualified Codes: J45.901 - Unspecified asthma with (acute) exacerbation Additional Impression: Headache Qualified Codes: R51 - Headache ER Course Pt w/ hx of asthma and migraines. pt. was out of her advair inhaler x 3 weeks, just got refill today. persistent wheezing and coughing x 3 days. pt. denies fevers or chills. pt. reports frontal pulsatile 8/10 in severity RIBERA and photophobia. Denies N/V, neck pain or stiffness. pt .reports hx of migraines in the past but hasnt had one in a few years. pt. denies recent illness. She reports urinary frequency, denies hematuria or dysuria. pt. denies head trauma. Denies CP, Palpitations, LOC, AMS, dizziness, Changes in Vision, Sensation, paresthesias, or a sudden severe headache. Ddx considered but are not limited to asthma exacerbation, CHF, URI, pneumonia, PE, strep pharyngitis, meningitis, migraine, meningitis, tension RIBERA, SAH just to name a few. Vital signs: Pt. is afebrile, VS are WNL H&PE are most consistent with URI, asthma exacerbation and benign RIBERA, will check for UTI. no focal neurological deficits. pt. has non-toxic appearance and does not appear altered or in distress. ORDERS: -UA: unremarkable ED INTERVENTIONS: -Prednisone 60mg PO -Reglan PO -Toradol IM -Excedrin Migraine PO -Albuterol nebulized treatment. - re-examination post nebulized treatment lungs are CTA bilaterally. -upon re-examination pt. also reports RIBERA symptoms have resolved. DISCHARGE: At this time pt. is stable for d/c to home. Will provide printed patient care instructions, and any necessary prescriptions. Care plan and follow up instructions have been discussed with the patient prior to discharge. Labs Test 01/03/18 20:05 Urine Color Pale yellow Urine Appearance Clear Urine pH 7 (4.5-8.0) Urine Specific [place] 1.010 (1.005-1.035) Urine Protein Negative (NEGATIVE) Urine Glucose (UA) Negative (NEGATIVE) Urine Ketones Negative (NEGATIVE) Urine Blood Negative (NEGATIVE) Urine Nitrite Negative (NEGATIVE) Urine Bilirubin Negative (NEGATIVE) Urine Urobilinogen Normal MG/DL (0.0-1.0) Urine Leukocyte Esterase Negative (NEGATIVE) Last Vital Signs Date Time Temp Pulse Resp B/P (MAP) Pulse Ox O2 Delivery O2 Flow Rate FiO2 01/03/18 20:10 98.2 91 18 123/75 99 Room Air 01/03/18 20:00 21 Disposition: HOME, SELF-CARE Condition: Stable Scripts Aspirin/Acetaminophen/Caffeine (EXCEDRIN MIGRAINE GELTAB) 1 Each Tablet 1 EACH PO Q6HR, #20 TAB Prov: Melva Lucas 01/03/18 Metoclopramide Hcl* (REGLAN*) 10 Mg Tablet 10 MG ORAL ONCE for Migraines, #4 TAB Prov: Melva Lucas 01/03/18 Albuterol Sulfate* (ALBUTEROL SULFATE MDI*) 8.5 Gm Hfa.aer.ad 2 PUFF INH Q4H, #1 INH 0 Refills Prov: Melva Lucas 01/03/18 Prednisone* (PREDNISONE*) 20 Mg Tablet 40 MG ORAL DAILY for 5 Days, #10 TAB Prov: Melva Lucas 01/03/18 Patient Instructions: Migraine Headache Additional Instructions: Take medications as directed. Follow up with a Primary Care Provider in 3-5 days, even if your symptoms have resolved. --Please review list of primary care clinics, if you do not already have a primary care provider Return sooner to ED if new symptoms occur, or current symptoms become worse. - Please note that this Emergency Department Report was dictated using [employer] cup[employer] analyst technology software, occasionally this can lead to erroneous entry secondary to interpretation by the dictation equipment. Melva Lucas Jan 03, 2018 20:28
== END 2018-01-03 20:23 | disposition home or self-care (01) ==
LOC: EMR 19:05
DX: J45.901 Unspecified asthma with (acute) exacerbation (principal); R51 Headache; I10 Essential (primary) hypertension; Z88.0 Allergy status to penicillin; Z91.018 Allergy to other foods
CPT/HCPCS: 81003; 94640; 94664; 96372; 99284; J1885; J7512

== ENCOUNTER 2018-03-20 15:50 | Emergency (ER) | payer MEDICAID ==
[~2018-03-20] VITALS: Ht 149.9 cm; Wt 106.1 kg
[~2018-03-20 15:50] MED LIST changes: +EXCEDRIN MIGRA1 EACH PO; +REGLAN10 MG ORAL
[2018-03-20 16:05] VITALS: BP 148/93
--- NOTE | 2018-03-20 16:05 | NUR ---
ED Nurse Note: PT WALKED IN TO ER TODAY FROM HOME. AOX4. PT C/O SOB X 3 DAYS AGO. RR13 @ 97% O2SAT ON RA AT BEDSIDE. WHEEZES HEARD IN LOWER LOBES BILATERALLY. NO SIGNS OF RESPIRATORY DISTRESS OR RETRACTIONS.
[2018-03-20] MEDS ORDERED: Albuterol/Ipratropium 3ml neb HHN ONE ×2 (16:15→17:15)
--- NOTE | 2018-03-20 16:21 | NUR ---
ED Nurse Note: RT CALLED FOR BREATHING TREATMENT
--- NOTE | 2018-03-20 16:23 | Emergency Room Report ---
History of Present Illness General Chief Complaint: Asthma Source: Patient Present Illness HPI Patient is a 37-year-old female who presented after increased difficulty breathing. Patient had prior history of asthma. She reports of increased cough and congestion. She recently run out of her Advair inhaler. She denies recent prednisone use. She denies any fever. Allergies: Coded Allergies: OSELTAMIVIR (Verified Allergy, Unknown, 03/20/17) BANANA (Verified Adverse Reaction, Severe, 10/13/15) PENICILLINS (Verified Adverse Reaction, Severe, 10/13/15) Uncoded Allergies: APPLE JUICE (Allergy, Unknown, 03/20/17) Patient History Past Medical History: see triage record Last Menstrual Period: 03/11/18 Now: No Reviewed Nursing Documentation: PMH: Agreed; PSxH: Agreed Nursing Documentation-PMH Past Medical History: No History, Except For Hx Hypertension: Yes Hx Asthma: Yes - USES ADIVAIR Review of Systems All Other Systems: negative except mentioned in HPI Physical Exam Vital Signs Date Time Temp Pulse Resp B/P (MAP) Pulse Ox O2 Delivery O2 Flow Rate FiO2 03/20/18 16:00 98.4 80 18 129/92 94 Sp02 EP Interpretation: reviewed, normal General Appearance: normal inspection, well appearing, no apparent distress, alert, GCS 15, obese Head: atraumatic ENT: normal ENT inspection, hearing grossly normal, normal voice Neck: normal inspection, full range of motion, supple, no bony tend Respiratory: normal inspection, no respiratory distress, no retraction, wheezing Cardiovascular #1: regular rate, rhythm, no edema Gastrointestinal: normal inspection, normal bowel sounds, non tender, soft, no guarding, no hernia Genitourinary: no CVA tenderness Musculoskeletal: normal inspection, back normal, normal range of motion Neurologic: normal inspection, alert, oriented x3, responsive, steam and gas turbine assembler III-XII nml as tested, speech normal Psychiatric: normal inspection, judgement/insight normal, mood/affect normal Skin: normal inspection, normal color, no rash Medical Decision Making Diagnostic Impression: Primary Impression: Asthma exacerbation ER Course Patient presented for difficulty breathing. Differential diagnosis included but was not limited to bronchitis, pneumonia, pulmonary embolism, pericarditis, asthma, foreign body. Patient was noted to have prior history of asthma and this appears to be typical for patient's asthma exacerbations. She has no new leg pain or swelling. test was negative. Patient is given nebulized albuterol with improvement. Patient was given steroids. Repeat lung exam showed improved breath sounds. Patient given prescription for oral steroids as well as albuterol. Patient was advised to return if she had any worsening of condition. Labs Test 03/20/18 18:00 Urine HCG, Qualitative Negative (NEGATIVE) Last Vital Signs Date Time Temp Pulse Resp B/P (MAP) Pulse Ox O2 Delivery O2 Flow Rate FiO2 03/20/18 16:00 98.4 80 18 129/92 94 Status: improved Disposition: HOME, SELF-CARE Condition: Stable Scripts Prednisone* (PREDNISONE*) 20 Mg Tablet 60 MG ORAL DAILY, #12 TAB Prov: Fei Thompson MD 03/20/18 Fei Thompson MD Mar 20, 2018 16:23
[2018-03-20] MEDS ORDERED: PREDNISONE20 MG ORAL (18:11)
[2018-03-20 18:23] VITALS: BP 122/77
--- NOTE | 2018-03-20 18:25 | NUR ---
ED Nurse Note: Pt was cleared to be discharged by [facility]. Pt received Predisone prescription. However, Dr. Thompson explained to her that she cannot take it if the test came postive. test is still pending and nurse will call pt if result comes out positive. Pt provided her phone number to nurse [phone]. Pt verbalized understanding. ID band removed. Pt ambulated out to be discharged.
--- NOTE | 2018-03-20 19:13 | NUR ---
ED Nurse Note: Urine test came out negative. Addendum: 03/20/18 at 1913 by [email or web address] ED Nurse Note: Pt was informed that pt is not and she can take Prednisone. Pt verbalized understanding.
== END 2018-03-20 18:28 | disposition home or self-care (01) ==
LOC: EMR 17:47
DX: J45.901 Unspecified asthma with (acute) exacerbation (principal); Z88.0 Allergy status to penicillin; Z91.018 Allergy to other foods; I10 Essential (primary) hypertension
CPT/HCPCS: 81025; 94640; 99284; J7512; J7620

== ENCOUNTER 2018-04-30 14:46 | Emergency (ER) | payer MEDICAID ==
[~2018-04-30] VITALS: Ht 149.9 cm; Wt 110.2 kg
[2018-04-30 14:46] VITALS: BP 132/84
[2018-04-30] MEDS ORDERED: Albuterol/Ipratropium 3ml neb HHN ONE (15:00)
--- NOTE | 2018-04-30 15:11 | Emergency Room Report ---
History of Present Illness General Chief Complaint: Dyspnea/Respdistress Source: Patient Present Illness HPI 37-year-old female patient presents ER complaining of cough and shortness of breath for the past 2 days. Reports cough with clear sputum. Denies hemoptysis. Reports history of asthma, states been using asthma inhalers without relief of symptoms. Reports reproducible chest pain with cough. Denies history of heart attack or heart disease. Denies recent travel period of Immobilization. Denies fever, vomiting, diarrhea. Denies abdominal pain. Denies other aggravating or relieving factors. Allergies: Coded Allergies: OSELTAMIVIR (Verified Allergy, Unknown, 03/20/17) BANANA (Verified Adverse Reaction, Severe, 10/13/15) PENICILLINS (Verified Adverse Reaction, Severe, 10/13/15) Uncoded Allergies: APPLE JUICE (Allergy, Unknown, 03/20/17) Patient History Past Medical History: see triage record Last Menstrual Period: apr 13 Now: No Reviewed Nursing Documentation: PMH: Agreed; PSxH: Agreed Nursing Documentation-PMH Past Medical History: No History, Except For Hx Hypertension: Yes Hx Asthma: Yes Review of Systems All Other Systems: negative except mentioned in HPI Physical Exam Vital Signs Date Time Temp Pulse Resp B/P (MAP) Pulse Ox O2 Delivery O2 Flow Rate FiO2 04/30/18 14:46 78 20 Room Air 04/30/18 14:46 98.4 132/84 98 Sp02 EP Interpretation: reviewed, normal General Appearance: well appearing, no apparent distress, alert, GCS 15, non- toxic Head: normocephalic, atraumatic Eyes: bilateral eye normal inspection, bilateral eye PERRL ENT: hearing grossly normal, normal pharynx, no angioedema, normal voice, uvula midline, moist mucus membranes Neck: full range of motion, no meningismus, no bony tend Respiratory: lungs clear, no rhonchi, no respiratory distress, no accessory muscle use, speaking full sentences, wheezing Cardiovascular #1: regular rate, rhythm, no edema Musculoskeletal: back normal, digits/nails normal, gait/station normal, normal range of motion, non-tender, no calf tenderness, Markus's Sign negative Psychiatric: mood/affect normal Skin: no rash Medical Decision Making PA Attestation Dr. Thompson is my supervising Physician whom patient management has been discussed with. Diagnostic Impression: Primary Impression: Asthma exacerbation ER Course Pt presents to ED c/o asthma symptoms. DDX considered but are not limited to asthma, viral URI, influenza, bronchitis, pneumonia. Negative Homans sign, denies calf pain. Denies hemoptysis, no tachycardia, low suspicion for PE does not require workup at this time Chest pain likely musculoskeletal in nature secondary to cough, does not require cardiac workup at this time. Patient instructed to take NSAIDs as needed for pain symptoms. No crackles or rhonci, patient afebrile, low suspicion for pneumonia, does not require chest x-ray at this time. VITAL SIGNS are WNL, patient is afebrile. Ordered breathing treatment and medication. ER COURSE Patient provided with prednisone Duoneb breathing treatment provided. Following treatment patient states no longer having difficulty with breathing. Lung sounds improved. Patient is resting comfortably in no acute distress. ER precautions given. Discuss referral to pulmonology. DISCHARGE: -Rx given for Prednisone. -Rx provided for Albuterol MDI. -Rx provided for Tessalon Perles At this time pt is stable for d/c to home. Patient is resting comfortably in no acute distress, nontoxic appearing, able to answer questions without difficulty. Patient to take medications as instructed Will provide with patient care instructions and any necessary prescriptions. Care plan and follow-up instructions provided. Patient instructed to follow-up with primary care provider in 3 - 5 days. Patient questions asked and answered. Patient reports understanding and agreement to treatment plan. ER precautions given. Patient instructed to return to ER immediately for any new or worsening of symptoms including but not limited to increasing SOB, persistent fever. - Please note that this Emergency Department Report was dictated using [employer] account manager technology software, occasionally this can lead to erroneous entry secondary to interpretation by the dictation equipment. Last Vital Signs Date Time Temp Pulse Resp B/P (MAP) Pulse Ox O2 Delivery O2 Flow Rate FiO2 04/30/18 14:50 98.2 83 18 136/89 98 Room Air Status: improved Disposition: HOME, SELF-CARE Condition: Stable Scripts Benzonatate* (TESSALON PERLE*) 100 Mg Capsule 100 MG ORAL THREE TIMES A DAY, #30 PERLE Prov: Sanjay Taveras P.A. 04/30/18 Albuterol Sulfate* (ALBUTEROL SULFATE MDI*) 8.5 Gm Hfa.aer.ad 2 PUFF INH Q6H, #1 INH 0 Refills Prov: Sanjay Taveras 04/30/18 Prednisone* (PREDNISONE*) 20 Mg Tablet 40 MG ORAL DAILY for 4 Days, #8 TAB Prov: Sanjay Taveras 04/30/18 Patient Instructions: Asthma Attack Prevention, Asthma, Acute Bronchospasm Additional Instructions: Followup with primary care provider in 3 -5 days. Discussed referral to pulmonology specialist. Take medications as directed. Patient questions asked and answered. ER precautions given, patient instructed to return to ER immediately for any new or worsening of symptoms. Sanjay Taveras Apr 30, 2018 15:11
[2018-04-30] MEDS ORDERED: TESSALON PERLE100 MG ORAL (15:31)
[2018-04-30] MEDS ORDERED: ALBUTEROL SULF8.5 GM INH (15:31)
[2018-04-30] MEDS ORDERED: PREDNISONE20 MG ORAL (15:31)
[2018-04-30 15:35] VITALS: BP 132/84
== END 2018-04-30 15:36 | disposition home or self-care (01) ==
LOC: EMR 15:25
DX: J45.901 Unspecified asthma with (acute) exacerbation (principal); I10 Essential (primary) hypertension; Z88.0 Allergy status to penicillin; Z91.018 Allergy to other foods
CPT/HCPCS: 94640; 99284; J7512; J7620

== ENCOUNTER 2018-05-25 13:43 | Emergency (ER) | payer MEDICAID ==
[~2018-05-25] VITALS: Ht 149.9 cm; Wt 104.8 kg
[~2018-05-25 13:43] MED LIST changes: +TESSALON PERLE100 MG ORAL
[2018-05-25 13:50] VITALS: BP 159/101
--- NOTE | 2018-05-25 13:55 | NUR ---
ED Nurse Note: Patient walked in to ED due to congestion, coughing, runny nose. 97.2 F at the triage. Pt is A&O x4, V/S stable with no s/s of acute distress noted at this time. ERMD at bedside evaluating the pt. Will continue to monitor the pt.
[2018-05-25] MEDS ORDERED: Azithromycin 250mg tab PO ONE (14:00)
[2018-05-25] MEDS ORDERED: Albuterol ud Inhalation HHN ONE (14:00)
[2018-05-25] MEDS ORDERED: Ipratropium 0.02% Inh Soln 2.5ml UD HHN ONE (14:00)
[2018-05-25] MEDS ORDERED: Solu-MEDROL 125mg Inj IVP ONE (14:00)
--- NOTE | 2018-05-25 14:04 | Emergency Room Report ---
History of Present Illness General Chief Complaint: Upper Respiratory Illness Source: Patient Present Illness HPI Patient presents with one week of increased dyspnea. She's had a yellow and green mucoid discharge from her nose. She has history of asthma. She's been using her nebulizer at least once a day. She also uses her albuterol at least once or twice a day. She has been wheezing. She has some dyspnea on exertion. There is minimal amount of chest pain to 2/10. She's had some loose stools that were yellow or green in color. She denies any dysuria. There is no nausea and vomiting. This is not her worst attack. She had fevers at the beginning the week but is no longer febrile. The patient did not get a flu shot. She is allergic to influenza vaccinations. She is also allergic to Tamiflu. History of hypertension History of asthma Allergies: Coded Allergies: OSELTAMIVIR (Verified Allergy, Unknown, 03/20/17) BANANA (Verified Adverse Reaction, Severe, 10/13/15) PENICILLINS (Verified Adverse Reaction, Severe, 10/13/15) Uncoded Allergies: APPLE JUICE (Allergy, Unknown, 03/20/17) Patient History Past Medical History: see triage record Social History: Denies: smoking Social History Narrative with a friend Last Menstrual Period: 05/14/18 Reviewed Nursing Documentation: PMH: Agreed; PSxH: Agreed Nursing Documentation-PMH Past Medical History: No History, Except For Hx Hypertension: Yes Hx Asthma: Yes Review of Systems All Other Systems: negative except mentioned in HPI Physical Exam Vital Signs Date Time Temp Pulse Resp B/P (MAP) Pulse Ox O2 Delivery O2 Flow Rate FiO2 05/25/18 13:48 97.2 91 18 159/101 94 Room Air Sp02 EP Interpretation: reviewed, normal General Appearance: well appearing, no apparent distress, GCS 15 Head: normocephalic, atraumatic Eyes: bilateral eye normal inspection, bilateral eye PERRL, bilateral eye EOMI ENT: moist mucus membranes, pharyngeal erythema, other - Nasal congestion Neck: supple Respiratory: wheezing, expiration Cardiovascular #1: regular rate, rhythm, no edema Cardiovascular #2: 2+ radial (R) Gastrointestinal: normal inspection, normal bowel sounds, non tender, no mass, non-distended, overweight Musculoskeletal: back normal, gait/station normal, normal range of motion, no calf tenderness Neurologic: alert, oriented x3 Skin: normal inspection, warm/dry Medical Decision Making Diagnostic Impression: Primary Impression: Asthmatic bronchitis Qualified Codes: J45.41 - Moderate persistent asthma with (acute) exacerbation ER Course Patient presents with upper respiratory symptoms and wheezing. Differential includes sinusitis, pneumonia, asthma exacerbation, asthmatic bronchitis amongst others. Evaluation will be with labs and chest x-ray. The patient will be treated with breathing treatments, Solu Medrol and Tylenol. Also azithromycin is begun as there is purulent mucoid discharge from the nose and also that she is coughing up. Chest x-ray clear. Labs unremarkable. Her graft patient is improved with minimal end expiratory wheezes after exertion. Discussed treatment plan. Patient stable for outpatient observation and treatment. Laboratory Tests Test 05/25/18 14:10 White Blood Count 9.2 K/UL (4.8-10.8) Red Blood Count 4.35 M/UL (4.20-5.40) Hemoglobin 12.0 G/DL (12.0-16.0) Hematocrit 38.1 % (37.0-47.0) Mean Corpuscular Volume 88 FL (80-99) Mean Corpuscular Hemoglobin 27.7 PG (27.0-31.0) Mean Corpuscular Hemoglobin Concent 31.6 G/DL (32.0-36.0) L Red Cell Distribution Width 13.6 % (11.6-14.8) Platelet Count 426 K/UL (150-450) Mean Platelet Volume 6.2 FL (6.5-10.1) L Neutrophils (%) (Auto) 63.3 % (45.0-75.0) Lymphocytes (%) (Auto) 26.0 % (20.0-45.0) Monocytes (%) (Auto) 7.2 % (1.0-10.0) Eosinophils (%) (Auto) 2.1 % (0.0-3.0) Basophils (%) (Auto) 1.3 % (0.0-2.0) Sodium Level 140 MMOL/L (136-145) Potassium Level 4.1 MMOL/L (3.5-5.1) Chloride Level 103 MMOL/L (98-107) Carbon Dioxide Level 29 MMOL/L (21-32) Anion Gap 8 mmol/L (5-15) Blood Urea Nitrogen 12 mg/dL (7-18) Creatinine 0.9 MG/DL (0.55-1.30) Estimate Glomerular Filtration Rate > 60 mL/min (>60) Glucose Level 90 MG/DL (74-106) Calcium Level 9.2 MG/DL (8.5-10.1) Total Bilirubin 0.2 MG/DL (0.2-1.0) Aspartate Amino Transferase (AST) 16 U/L (15-37) Alanine Aminotransferase (ALT) 23 U/L (12-78) Alkaline Phosphatase 64 U/L (46-116) Total Protein 7.7 G/DL (6.4-8.2) Albumin 3.4 G/DL (3.4-5.0) Globulin 4.3 g/dL Albumin/Globulin Ratio 0.8 (1.0-2.7) L Chest X-Ray Diagnostic Results Chest X-Ray Diagnostic Results : Chest X-Ray Ordered: Yes # of Views/Limited/Complete: 1 View Indication: Shortness of Breath EP Interpretation: Yes Interpretation: no consolidation, no effusion, no pneumothorax Impression: No acute disease Electronically Signed by: Electronically signed by Hua Nuñez MD Last Vital Signs Date Time Temp Pulse Resp B/P (MAP) Pulse Ox O2 Delivery O2 Flow Rate FiO2 05/25/18 15:33 98.4 68 19 134/67 98 Room Air 05/25/18 14:19 21 Status: improved Disposition: HOME, SELF-CARE Condition: Improved Scripts Fluticasone/Salmeterol (Advair 250-50 Diskus) 1 Each Blst.w.dev 1 PUFF INH EVERY 12 HOURS, #1 EA Prov: Hua Nuñez MD 05/25/18 Azithromycin* (ZITHROMAX*) 250 Mg Tablet 250 MG ORAL DAILY, #4 TAB Prov: Hua Nuñez MD 05/25/18 Prednisone* (PREDNISONE*) 20 Mg Tablet 40 MG ORAL DAILY, #10 TAB Prov: Hua Nuñez MD 05/25/18 Albuterol Sulfate* (ALBUTEROL SULFATE HHN*) 2.5 Mg/3 Ml Vial.neb 2.5 MG HHN Q4H PRN for Shortness of Breath, #25 VIAL Prov: Hua Nuñez MD 05/25/18 Hua Nuñez MD May 25, 2018 14:04
[2018-05-25 14:19] LABS: BASOPHILS % (AUTO) 1.3 % (0.0-2.0); EOSINOPHILS % (AUTO) 2.1 % (0.0-3.0); HEMATOCRIT 38.1 % (37.0-47.0); MEAN CORPUSCULAR VOLUME 88 FL (80-99); MONOCYTES % (AUTO) 7.2 % (1.0-10.0); NEUTROPHILS % (AUTO) 63.3 % (45.0-75.0); PLATELET COUNT 426 K/UL (150-450); RED BLOOD COUNT 4.35 M/UL (4.20-5.40); RED CELL DISTRIBUTION WIDTH 13.6 % (11.6-14.8); WHITE BLOOD COUNT 9.2 K/UL (4.8-10.8)
[2018-05-25 14:27] LABS: ANION GAP 8 mmol/L (5-15); BLOOD UREA NITROGEN 12 mg/dL (7-18); CALCIUM 9.2 MG/DL (8.5-10.1); CARBON DIOXIDE 29 MMOL/L (21-32); CHLORIDE 103 MMOL/L (98-107); CREATININE 0.9 MG/DL (0.55-1.30); POTASSIUM 4.1 MMOL/L (3.5-5.1); SODIUM 140 MMOL/L (136-145)
[2018-05-25 14:32] LABS: ALANINE AMINOTRANSFERASE 23 U/L (12-78); ALBUMIN 3.4 G/DL (3.4-5.0); ALBUMIN/GLOBULIN RATIO 0.8 (1.0-2.7); ALKALINE PHOSPHATASE 64 U/L (46-116); ASPARTATE AMINO TRANSFERASE 16 U/L (15-37); BILIRUBIN,TOTAL 0.2 MG/DL (0.2-1.0)
[2018-05-25] MEDS ORDERED: ADVAIR 250-501 EACH INH (15:28)
[2018-05-25] MEDS ORDERED: ZITHROMAX250 MG ORAL (15:28)
[2018-05-25] MEDS ORDERED: ALBUTEROL2.5 MG/3 M HHN (15:28)
[2018-05-25] MEDS ORDERED: PREDNISONE20 MG ORAL (15:28)
--- NOTE | 2018-05-25 15:30 | NUR ---
ED Nurse Note: pt cleared to be d/c per ERMD, pt discharge and aftercare instruction provided w/ prescription, pt education done via discussion and handout, pt advised to follow up with pcp to continue care or return to ed if sx worsen or new sx develop, pt verbalized understanding and agrees with plan, vss, ambulatory w/ steady gait, left w/ all belongings. resp even and unlabored on RA. iv d/c and wristband removed.
[2018-05-25 15:33] VITALS: BP 134/67
== END 2018-05-25 15:03 | disposition home or self-care (01) ==
LOC: EMR 14:40
DX: J45.41 Moderate persistent asthma with (acute) exacerbation (principal); I10 Essential (primary) hypertension
CPT/HCPCS: 36415; 71045; 80053; 85025; 94640; 94664; 96361; 96374; 99284; J2930; Q0144

== ENCOUNTER 2018-08-14 13:18 | Emergency (ER) | payer MEDICAID ==
[~2018-08-14] VITALS: Ht 149.9 cm; Wt 105.2 kg
[2018-08-14 13:28] VITALS: BP 149/83
[2018-08-14] MEDS ORDERED: Albuterol ud Inhalation HHN ONE (13:30)
[2018-08-14] MEDS ORDERED: Albuterol/Ipratropium 3ml neb HHN ONE (14:30)
--- NOTE | 2018-08-14 14:43 | Emergency Room Report ---
History of Present Illness General Chief Complaint: Asthma Source: Patient Present Illness HPI 37 YO Female presents to the ED c/o cough and wheezing x 3 days, Pt. has a hx of asthma, and she is out of her inhaler treatments at home. She denies fevers or chills she does report 5/10 in severity sore throat and nasal congestion with some rhinorrhea. Patient denies neck pain/stiffness, recent travel or ill contacts with similar symptoms. Patient denies sputum production but states that she does feel as though she has mucus stuck in her throat. States that she also takes Spiriva in addition to albuterol inhalers. Denies chest pain, palpitations or feeling short of breath. Allergies: Coded Allergies: OSELTAMIVIR (Verified Allergy, Unknown, 03/20/17) BANANA (Verified Adverse Reaction, Severe, 10/13/15) PENICILLINS (Verified Adverse Reaction, Severe, 10/13/15) Uncoded Allergies: APPLE JUICE (Allergy, Unknown, 03/20/17) Patient History Past Medical History: see triage record Past Surgical History: none Pertinent Family History: none Now: No Reviewed Nursing Documentation: PMH: Agreed; PSxH: Agreed Nursing Documentation-PMH Hx Hypertension: Yes Hx Asthma: Yes Review of Systems All Other Systems: negative except mentioned in HPI Physical Exam Vital Signs Date Time Temp Pulse Resp B/P (MAP) Pulse Ox O2 Delivery O2 Flow Rate FiO2 08/14/18 13:21 98.4 94 23 149/83 (105) 98 Room Air 08/14/18 13:40 21 Sp02 EP Interpretation: reviewed, normal General Appearance: no apparent distress, alert, GCS 15, non-toxic Head: normocephalic, atraumatic Eyes: bilateral eye normal inspection, bilateral eye PERRL ENT: hearing grossly normal, normal voice, uvula midline, moist mucus membranes , nasal congestion, other - evidence of PND Neck: full range of motion Respiratory: chest non-tender, lungs clear, normal breath sounds, speaking full sentences Cardiovascular #1: regular rate, rhythm Gastrointestinal: normal bowel sounds, non tender, soft Rectal: deferred Genitourinary: normal inspection Musculoskeletal: back normal, gait/station normal, normal range of motion, non- tender Neurologic: alert, oriented x3, responsive, motor strength/tone normal, sensory intact, speech normal, grossly normal Psychiatric: judgement/insight normal Skin: normal color, no rash, warm/dry, well hydrated Lymphatic: no adenopathy Medical Decision Making PA Attestation Dr. Moulton is my supervising Physician whom patient management has been discussed with. Diagnostic Impression: Primary Impression: Asthmatic bronchitis Qualified Codes: J45.21 - Mild intermittent asthma with (acute) exacerbation Additional Impressions: Post-nasal drainage Sore throat and laryngitis ER Course 37 YO Female presents to the ED c/o cough and wheezing x 3 days, Pt. has a hx of asthma, and she is out of her inhaler treatments at home. She denies fevers or chills she does report 5/10 in severity sore throat and nasal congestion with some rhinorrhea. Patient denies neck pain/stiffness, recent travel or ill contacts with similar symptoms. Patient denies sputum production but states that she does feel as though she has mucus stuck in her throat. States that she also takes Spiriva in addition to albuterol inhalers. Denies chest pain, palpitations or feeling short of breath. Ddx considered but are not limited to asthma exacerbation, CHF, URI, pneumonia, PE, strep pharyngitis, meningitis. Vital signs: Pt. is afebrile, VS are WNL H&PE are most consistent with URI, asthma exacerbation ORDERS: none required at this time, the diagnosis is clinical ED INTERVENTIONS: Albuterol nebulized treatment. - re-examination post nebulized treatment lungs are CTA bilaterally. DISCHARGE: At this time pt. is stable for d/c to home. Will provide printed patient care instructions, and any necessary prescriptions. Care plan and follow up instructions have been discussed with the patient prior to discharge. Last Vital Signs Date Time Temp Pulse Resp B/P (MAP) Pulse Ox O2 Delivery O2 Flow Rate FiO2 08/14/18 13:59 90 20 98 Room Air 21 08/14/18 13:28 98.4 149/83 Status: improved Disposition: HOME, SELF-CARE Condition: Stable Scripts Cetirizine Hcl/Pseudoephedrine (ZYRTEC-D TABLET) 1 Each Tab.er.12h 1 EACH ORAL Q12HR for 7 Days, #14 TAB Prov: Melva Lucas 08/14/18 Guaifenesin (Mucinex) 1,200 Mg Tab.er.12h 1200 MG PO Q12HR, #20 TAB Prov: Melva Lucas 08/14/18 Albuterol Sulfate* (ALBUTEROL SULFATE MDI*) 8.5 Gm Hfa.aer.ad 2 PUFF INH Q3H, #1 INH 0 Refills Prov: Melva Lucas 08/14/18 Codeine/Promethazine Hcl* (PROMETHAZINE-CODEINE SYRUP*) 118 Ml Syrup 5 ML ORAL Q6H PRN for For Cough, #120 ML 0 Refills Prov: Melva Lucas 08/14/18 Prednisone* (PREDNISONE*) 20 Mg Tablet 40 MG ORAL DAILY for 3 Days, #9 TAB Prov: Melva Lucas 08/14/18 Referrals: [facility]ERR[facility] (PCP) Patient Instructions: Asthma, Adult Additional Instructions: Take medications as directed. Follow up with a Primary Care Provider in 3-5 days, even if your symptoms have resolved. --Please review list of primary care clinics, if you do not already have a primary care provider Return sooner to ED if new symptoms occur, or current symptoms become worse. Do not drink alcohol, drive, or operate heavy machinery while taking Cough Syrup as this may cause drowsiness. - Please note that this Emergency Department Report was dictated using [employer] engineer technology software, occasionally this can lead to erroneous entry secondary to interpretation by the dictation equipment. Melva Lucas Aug 14, 2018 14:43
[2018-08-14] MEDS ORDERED: PREDNISONE20 MG ORAL (14:46)
[2018-08-14] MEDS ORDERED: ZYRTEC-D TABLE1 EACH ORAL (14:46)
[2018-08-14] MEDS ORDERED: MUCINEX1200 MG PO (14:46)
[2018-08-14] MEDS ORDERED: ALBUTEROL SULF8.5 GM INH (14:46)
[2018-08-14] MEDS ORDERED: PROMETHAZINE-C118 M1 ORAL (14:46)
[2018-08-14 15:47] VITALS: BP 138/93
== END 2018-08-14 15:50 | disposition home or self-care (01) ==
LOC: EMR 13:30
DX: J45.21 Mild intermittent asthma with (acute) exacerbation (principal); J04.0 Acute laryngitis; J02.9 Acute pharyngitis, unspecified; R09.82 Postnasal drip; I10 Essential (primary) hypertension; Z91.018 Allergy to other foods; Z88.0 Allergy status to penicillin; Z88.8 Allergy status to other drugs, medicaments and biological substances
CPT/HCPCS: 94640; 94664; 99284; J7512; J7620

== ENCOUNTER 2018-10-18 13:50 | Emergency (ER) | payer MEDICAID ==
[~2018-10-18] VITALS: Ht 149.9 cm; Wt 109.8 kg
[~2018-10-18 13:50] MED LIST changes: +MUCINEX1200 MG PO; +ZYRTEC-D TABLE1 EACH ORAL
[2018-10-18 13:54] VITALS: BP 147/62
--- NOTE | 2018-10-18 14:00 | NUR ---
ED Nurse Note: Patient walked into ED c/o asthma exacerbation and nasal congestion for 2 days. patient is alert awake x4 ambulatory steady gait
[2018-10-18] MEDS ORDERED: Albuterol ud Inhalation HHN ONE (14:15)
--- NOTE | 2018-10-18 14:43 | Emergency Room Report ---
History of Present Illness General Chief Complaint: Asthma Source: Patient Present Illness HPI 38-year-old female presents to the emergency department complaining of asthma exacerbation with dry cough and wheeze as well as sinus symptoms which started 3 days ago with nasal congestion, sneezing, rhinorrhea and sore throat. Patient also reports sinus pressure headache that is frontal she denies neck pain or stiffness she denies photophobia she denies nausea vomiting. Patient denies fevers or chills or purulent discharge. Denies CP, Palpitations, LOC, AMS, dizziness, Changes in Vision, Sensation, paresthesias, or a sudden severe headache. Allergies: Coded Allergies: OSELTAMIVIR (Verified Allergy, Unknown, 03/20/17) BANANA (Verified Adverse Reaction, Severe, 10/13/15) PENICILLINS (Verified Adverse Reaction, Severe, 10/13/15) Uncoded Allergies: APPLE JUICE (Allergy, Unknown, 03/20/17) Patient History Past Medical History: see triage record Past Surgical History: none Pertinent Family History: none Now: No Reviewed Nursing Documentation: PMH: Agreed; PSxH: Agreed Nursing Documentation-PMH Past Medical History: No History, Except For Hx Hypertension: Yes Hx Asthma: Yes Review of Systems All Other Systems: negative except mentioned in HPI Physical Exam Vital Signs Date Time Temp Pulse Resp B/P (MAP) Pulse Ox O2 Delivery O2 Flow Rate FiO2 10/18/18 13:54 98.2 90 18 147/62 (90) 97 Room Air 10/18/18 14:17 21 Sp02 EP Interpretation: reviewed, normal General Appearance: no apparent distress, alert, GCS 15, non-toxic Head: normocephalic, atraumatic Eyes: bilateral eye normal inspection, bilateral eye PERRL ENT: hearing grossly normal, normal pharynx, normal voice, TMs + canals normal , uvula midline, nasal congestion - clear rhinorrhea, swollen boggy turbinates bilaterally., pharyngeal erythema - cobble stoning, no exudates Neck: full range of motion, no meningismus, no bony tend Respiratory: chest non-tender, lungs clear, speaking full sentences, wheezing - expiratory Cardiovascular #1: regular rate, rhythm, no edema, normal capillary refill Musculoskeletal: back normal, gait/station normal, normal range of motion, non- tender Neurologic: alert, oriented x3, responsive, motor strength/tone normal, sensory intact, speech normal, grossly normal Psychiatric: judgement/insight normal Lymphatic: no adenopathy Medical Decision Making PA Attestation Dr. Marin Is my supervising Physician whom patient management has been discussed with. Diagnostic Impression: Primary Impression: Asthma exacerbation Qualified Codes: J45.21 - Mild intermittent asthma with (acute) exacerbation Additional Impression: Acute allergic rhinitis ER Course Pt. presents to the ED c/o cough and wheezing x 2 days, Pt. has a hx of asthma, and inhaler treatments at home are not helping. Ddx considered but are not limited to asthma exacerbation, CHF, URI, pneumonia, PE, strep pharyngitis, meningitis. Vital signs: Pt. is afebrile, VS are WNL H&PE are most consistent with URI, asthma exacerbation ORDERS: -CXR: ED INTERVENTIONS: Albuterol nebulized treatment. - re-examination post nebulized treatment lungs are CTA bilaterally. DISCHARGE: At this time pt. is stable for d/c to home. Will provide printed patient care instructions, and any necessary prescriptions. Care plan and follow up instructions have been discussed with the patient prior to discharge. Chest X-Ray Diagnostic Results Chest X-Ray Diagnostic Results : Chest X-Ray Ordered: Yes # of Views/Limited/Complete: 1 View Indication: Shortness of Breath EP Interpretation: Yes PA Xray: Interpretation reviewed, by supervising MD, and agrees with findings. Interpretation: no consolidation, no effusion, no pneumothorax Impression: No acute disease Electronically Signed by: Melva Lucas PA-C Last Vital Signs Date Time Temp Pulse Resp B/P (MAP) Pulse Ox O2 Delivery O2 Flow Rate FiO2 10/18/18 14:18 89 20 99 Room Air 21 10/18/18 13:54 98.2 147/62 (90) Status: improved Disposition: HOME, SELF-CARE Condition: Stable Scripts Prednisone* (PREDNISONE*) 20 Mg Tablet 40 MG ORAL DAILY for 4 Days, #8 TAB Prov: Melva Lucas 10/18/18 Albuterol Sulfate* (ALBUTEROL SULFATE MDI*) 8.5 Gm Hfa.aer.ad 2 PUFF INH Q3H, #1 INH 2 Refills Prov: Melva Lucas 10/18/18 Cetirizine Hcl/Pseudoephedrine (ZYRTEC-D TABLET) 1 Each Tab.er.12h 1 EACH ORAL Q12HR for 7 Days, #14 TAB Prov: Melva Lucas 10/18/18 Oxymetazoline HCl (Afrin) 15 Ml [place] 2 SPRAY NASAL TWICE A DAY, #15 SPRAY Do not use Afrin for more than 3 consecutive days. Otherwise you increase your risk of rebound congestion. Prov: Melva Lucas 10/18/18 Patient Instructions: Asthma, Adult Additional Instructions: Take medications as directed. Follow up with a Primary Care Provider in 3-5 days, even if your symptoms have resolved. --Please review list of primary care clinics, if you do not already have a primary care provider Return sooner to ED if new symptoms occur, or current symptoms become worse. - Please note that this Emergency Department Report was dictated using [employer] technology software, occasionally this can lead to erroneous entry secondary to interpretation by the dictation equipment. Melva Lucas Oct 18, 2018 14:43
[2018-10-18] MEDS ORDERED: AFRIN NASAL SPR30 ML NASAL (14:55)
[2018-10-18] MEDS ORDERED: PREDNISONE20 MG ORAL (14:55)
[2018-10-18] MEDS ORDERED: ALBUTEROL SULF8.5 GM INH (14:55)
[2018-10-18] MEDS ORDERED: ZYRTEC-D TABLE1 EACH ORAL (14:55)
[2018-10-18 15:01] VITALS: BP 130/65
--- NOTE | 2018-10-18 15:01 | NUR ---
ER DISCHARGE NOTE: Patient is cleared to be discharged per ERMD, pt is aox4, on room air, with stable vital signs. pt was given dc and prescription instructions, pt was able to verbalize understanding, pt id band removed without complications. pt is able to ambulate with steady gait. pt took all belongings.
--- NOTE | 2018-10-18 16:56 | Diagnostic Imaging Report ---
Indication: Chest pain Technique: One view of the chest Comparison: 05/25/2018 Findings: Body habitus limits evaluation. The heart is mildly enlarged. Lungs and pleural spaces are clear. No significant interim change . Impression: Cardiomegaly. No acute process
== END 2018-10-18 15:01 | disposition home or self-care (01) ==
LOC: EMR 14:48
DX: J45.21 Mild intermittent asthma with (acute) exacerbation (principal); I10 Essential (primary) hypertension; Z88.8 Allergy status to other drugs, medicaments and biological substances; Z88.0 Allergy status to penicillin; Z91.018 Allergy to other foods
CPT/HCPCS: 71045; 94640; 94664; 99284; J7512

== ENCOUNTER 2019-02-18 11:16 | Emergency (ER) | payer MEDICAID ==
[~2019-02-18] VITALS: Ht 149.9 cm; Wt 105.2 kg
--- NOTE | 2019-02-18 11:28 | NUR ---
ED Nurse Note: pt reported she is not taking any medications beside Neb at home.
--- NOTE | 2019-02-18 11:32 | NUR ---
ED Nurse Note: patient ambulated into the ER with a c/o SOB, and chest tightness x 2days. Patient aaox4, on room air. Patient states she took albuterol prior to coming to ER and states it wasnt helping.
[2019-02-18 11:34] VITALS: BP 153/94
[2019-02-18] MEDS ORDERED: Albuterol/Ipratropium 3ml neb HHN ONE (11:45)
[2019-02-18] MEDS ORDERED: PREDNISONE20 MG ORAL (11:53)
[2019-02-18] MEDS ORDERED: ALBUTEROL SULF8.5 GM INH (11:53)
--- NOTE | 2019-02-18 12:04 | NUR ---
ED Nurse Note: Urine specimen sent to lab.
--- NOTE | 2019-02-18 12:13 | Emergency Room Report ---
History of Present Illness General Chief Complaint: Asthma Source: Patient Present Illness HPI Patient is a 38-year-old female with a history of asthma who presented after increased difficulty with breathing. She reports recent upper respiratory infection. She had been having increased nasal congestion as well as intermittently productive cough with yellow sputum. She denies any fever. She had some episodes of vomiting and diarrhea which had resolved. Denies any hemoptysis. She denies any leg pain or swelling. She had been taking albuterol inhaler as well as nebulizer treatments with minimal improvement. She denies recent hospitalization. She denies intubation in the past.Patient onset of symptoms over the past 3 to 4 days. Allergies: Coded Allergies: OSELTAMIVIR (Verified Allergy, Unknown, 03/20/17) BANANA (Verified Adverse Reaction, Severe, 10/13/15) PENICILLINS (Verified Adverse Reaction, Severe, 10/13/15) Uncoded Allergies: APPLE JUICE (Allergy, Unknown, 03/20/17) Patient History Past Medical History: see triage record, asthma Last Menstrual Period: Jan 27, 2019 Reviewed Nursing Documentation: PMH: Agreed; PSxH: Agreed Nursing Documentation-PMH Past Medical History: No History, Except For Hx Hypertension: Yes Hx Asthma: Yes Review of Systems All Other Systems: negative except mentioned in HPI Physical Exam Vital Signs Date Time Temp Pulse Resp B/P (MAP) Pulse Ox O2 Delivery O2 Flow Rate FiO2 02/18/19 11:24 98.1 81 18 137/107 (117) 97 Room Air 02/18/19 11:58 21 General Appearance: well appearing, alert, GCS 15, mild distress Head: normocephalic, atraumatic ENT: hearing grossly normal, normal voice Neck: full range of motion, supple Respiratory: no respiratory distress, speaking full sentences, wheezing Cardiovascular #1: normal peripheral pulses, no edema Gastrointestinal: normal inspection Musculoskeletal: normal inspection, no calf tenderness Neurologic: alert, motor strength/tone normal, trademark affixer III-XII nml as tested, EOM palsy, normal gait Psychiatric: mood/affect normal Skin: no rash Medical Decision Making Diagnostic Impression: Primary Impression: Asthma exacerbation ER Course Patient presented for shortness of breath. Differential diagnosis included but was not limited to asthma exacerbation, pneumonia, pneumothorax, congestive heart failure, viral respiratory infection, pulmonary embolism, anaphylaxis among others. Patient was placed in the examination room and evaluated by me immediately. Patient was checked periodically to assure stability and response to treatment. Patient was noted to have prior history of asthma. Patient does not appear to have risk for pulmonary embolism and has equal breath sounds. No history of recent hospitalization or intubation. No recent steroid use. Patient had previously been taking a steroid inhaler. She was initially noted to have minimal respiratory distress with mild wheezing and good air movement. Patient was given breathing treatment as well as steroids. Patient was reexamined after breathing treatment and had improvement in air movement. Patient appears stable for outpatient management. Patient was given prescription for oral steroids as well as albuterol. Patient was advised to recheck with primary care physician in 1-2 days. Patient to return for any worsening or other concerns. Last Vital Signs Date Time Temp Pulse Resp B/P (MAP) Pulse Ox O2 Delivery O2 Flow Rate FiO2 02/18/19 11:58 80 13 100 Room Air 21 83 16 100 02/18/19 11:34 98.1 153/94 Status: improved Disposition: HOME, SELF-CARE Condition: Stable Scripts Prednisone* (PREDNISONE*) 20 Mg Tablet 40 MG ORAL DAILY, #10 TAB Prov: Fei Thompson MD 02/18/19 Albuterol Sulfate* (ALBUTEROL SULFATE MDI*) 8.5 Gm Hfa.aer.ad 2 PUFF INH Q4H PRN for cough/wheezing, #1 EA 0 Refills Prov: Fei Thompson MD 02/18/19 Referrals: [facility]ERR[facility] (PCP) Patient Instructions: Asthma, Adult Fei Thompson MD Feb 18, 2019 12:13
[2019-02-18 12:18] VITALS: BP 153/94
--- NOTE | 2019-02-18 12:19 | NUR ---
ER DISCHARGE NOTE: Patient is cleared to be discharged per ERMD Dr. Thompson, pt is aox4, on room air, with stable vital signs. pt was given dc and prescription instructions, pt was able to verbalize understanding, pt id band removed without complications. pt is able to ambulate with steady gait. pt took all belongings.
== END 2019-02-18 12:19 | disposition home or self-care (01) ==
LOC: EMR 11:35
DX: J45.901 Unspecified asthma with (acute) exacerbation (principal); I10 Essential (primary) hypertension; R11.10 Vomiting, unspecified; Z88.0 Allergy status to penicillin; Z91.018 Allergy to other foods
CPT/HCPCS: 81025; J7512; Z7502; 99284; J7620

== ENCOUNTER 2019-04-22 15:23 | Emergency (ER) | payer MEDICAID ==
[~2019-04-22] VITALS: Ht 149.9 cm; Wt 109.3 kg
[2019-04-22 15:55] VITALS: BP 148/100
--- NOTE | 2019-04-22 16:13 | Emergency Room Report ---
History of Present Illness General Chief Complaint: Upper Respiratory Illness Source: Patient Present Illness HPI 38-year-old female history of hypertension and asthma presented for cough and wheezing. Patient has had cough and wheezing for the past 2 weeks worse in the past 2 days. Worse at night. Cough is productive of green sputum. No fevers nausea or vomiting. Patient use albuterol treatments at home with some relief. She was seen at urgent care 2 weeks ago and prescribed 3 days of steroids but has had persistent wheezing. She currently smokes marijuana. Arrived ambulatory to the ER no acute distress. Allergies: Coded Allergies: OSELTAMIVIR (Verified Allergy, Unknown, 03/20/17) BANANA (Verified Adverse Reaction, Severe, 10/13/15) PENICILLINS (Verified Adverse Reaction, Severe, 10/13/15) Uncoded Allergies: APPLE JUICE (Allergy, Unknown, 03/20/17) Patient History Past Medical History: see triage record Last Menstrual Period: 1-13 Now: No Reviewed Nursing Documentation: PMH: Agreed; PSxH: Agreed Nursing Documentation-PMH Past Medical History: No History, Except For Hx Hypertension: Yes Hx Asthma: Yes Review of Systems All Other Systems: negative except mentioned in HPI Physical Exam Vital Signs Date Time Temp Pulse Resp B/P (MAP) Pulse Ox O2 Delivery O2 Flow Rate FiO2 04/22/19 15:43 99.7 103 24 148/100 (116) 95 Room Air Sp02 EP Interpretation: reviewed General Appearance: well appearing, no apparent distress Head: normocephalic, atraumatic Eyes: bilateral eye PERRL, bilateral eye EOMI ENT: hearing grossly normal, moist mucus membranes Neck: full range of motion, supple Respiratory: no rhonchi, no respiratory distress, no retraction, other - Faint expiratory wheeze noted bilaterally Cardiovascular #1: normal peripheral pulses, no murmur, other - Accelerated rate, regular Gastrointestinal: non tender, soft, non-distended, no guarding Neurologic: alert, oriented x3, no focal defects Skin: normal color, warm/dry Medical Decision Making Diagnostic Impression: Primary Impression: Asthma exacerbation ER Course Patient presented with cough and persistent wheezing. She has a history of asthma. She was previously on Advair however has been off for the past few months. Due to her persistent cough with sputum production and wheezing will restart Advair, start on prednisone For 5 days, antibiotic, and recommend follow-up with her primary doctor in 2 to 3 days for reassessment. Is also advised to avoid smoking. Patient agreeable with the plan Last Vital Signs Date Time Temp Pulse Resp B/P (MAP) Pulse Ox O2 Delivery O2 Flow Rate FiO2 04/22/19 15:55 99.7 102 24 148/100 95 Room Air Status: improved Disposition: HOME, SELF-CARE Condition: Stable Scripts Azithromycin* (ZITHROMAX*) 250 Mg Tablet 250 MG ORAL DAILY, #6 TAB 0 Refills Take two tables once daily for 1 day, then one tablet once daily for 4 days. Prov: Ori Giron M.D. 04/22/19 Fluticasone/Salmeterol (Advair 250-50 Diskus) 1 Each Blst.w.dev 1 PUFF INH EVERY 12 HOURS for 30 Days, #1 EA Prov: Ori Giron M.D. 04/22/19 Prednisone* (PREDNISONE*) 20 Mg Tablet 40 MG ORAL DAILY, #8 TAB Prov: Ori Giron M.D. 04/22/19 Albuterol Sulfate* (ALBUTEROL SULFATE MDI*) 8.5 Gm Hfa.aer.ad 2 PUFF INH Q4H PRN for cough/wheezing, #1 EA 0 Refills Prov: Ori Giron M.D. 04/22/19 Additional Instructions: Patient is instructed to follow-up with her primary care doctor, primary care clinic or [facility] in 1 to 2 days. Patient instructed to return for any worsening symptoms or concerns. Please note that the documentation in this note was used with [employer] technology. Pleae be advised that this may lead to erroneous text due to misinterpretation by the dictation software Ori Giron M.D. Apr 22, 2019 16:13
[2019-04-22] MEDS ORDERED: Albuterol/Ipratropium 3ml neb HHN ONE (16:15)
[2019-04-22] MEDS ORDERED: ZITHROMAX250 MG ORAL (16:17)
[2019-04-22] MEDS ORDERED: ALBUTEROL SULF8.5 GM INH (16:17)
[2019-04-22] MEDS ORDERED: ADVAIR 250-501 EACH INH (16:17)
[2019-04-22] MEDS ORDERED: PREDNISONE20 MG ORAL (16:17)
[2019-04-22 17:15] VITALS: BP 148/100
== END 2019-04-22 17:15 | disposition home or self-care (01) ==
LOC: EMR 16:00
DX: J45.901 Unspecified asthma with (acute) exacerbation (principal); I10 Essential (primary) hypertension; Z88.0 Allergy status to penicillin; Z88.8 Allergy status to other drugs, medicaments and biological substances; Z91.018 Allergy to other foods; Z79.51 Long term (current) use of inhaled steroids
CPT/HCPCS: J7512; Z7502; 99284; J7620